=== PATIENT | female | born 1985 | race Caucasian/White ===

== ENCOUNTER 2018-07-11 22:36 | Emergency (ER) | payer BC, MEDICAID, OTHER, SELFPAY ==
--- NOTE | 2018-07-11 22:45 | EDM.PDOC ---
ED HPI GENERAL MEDICAL PROBLEM - General Chief Complaint: Respiratory Problem Stated Complaint: shortness of breath Time Seen by Provider: 07/11/18 22:45 Source of Information: Reports: Patient, Family (), Old Records ([facility] chart/EMR) History Limitations: Reports: No Limitations - History of Present Illness INITIAL COMMENTS - FREE TEXT/NARRATIVE: The patient was brought to the emergency room via private automobile by her friend for evaluation of progressive URI type symptoms, including a productive cough, wheezing, dyspnea etc. with symptoms starting about 2 weeks ago and worsening since yesterday morning. She had a fever of 100.8 earlier today with 800 mg of ibuprofen taken at 21:00 hours and Tylenol Sinus cold medication taken at 09:30 a.m. this morning. She denies any known exposure to infection with patient not yet receiving her influenza booster this season. The patient did use her inhaler earlier today, however this is . The patient denies any chest pain/pressure, heart flutter, dizziness, orthostasis, orthopnea, diaphoresis, paresthesias, recent decreased exercise tolerance, or any other anginal-type symptoms. No recent history of abdominal pain, heartburn, nausea, diarrhea, melena, gross hematochezia, or any food intolerance, including fatty foods, etc.. She does have 8/10 nonspecific chest fullness similar to previous bronchitic infections with no true pleurisy, etc. Onset: Gradual Duration: Week(s): (As above), Getting Worse Quality: Reports: Ache, Same as Previous Episode. Denies: Pressure Severity: Moderate Improves with: Reports: None Worsens with: Reports: None Context: Denies: Sick Contact, Trauma Associated Symptoms: Reports: Chest Pain (Nonspecific as above), Cough, cough w sputum (Color unknown), Fever/Chills, Nausea/Vomiting (Emesis secondary to coughing with no nausea), Shortness of Breath, Weakness (Nonspecific generalized ). 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, NSAIDS, Other Medication(s) Chest Pain Score (Numeric/FACES): 8 - Related Data Allergies Allergy/AdvReac Type Severity Reaction Status Date / Time latex Allergy Hives Verified 07/11/18 22:42 lithium [[place]] Allergy Anaphylactic Verified 07/11/18 22:42 Shock morphine Allergy Hypotension Verified 07/11/18 22:42 Sulfa (Sulfonamide Allergy Rash Verified 07/11/18 22:42 Antibiotics) tramadol HCl [From Ultram] Allergy Seizure Verified 07/11/18 22:42 Home Meds: Home Meds Gabapentin 600 mg PO TID 02/23/14 [History] Pantoprazole Sodium [Protonix] 40 mg PO DAILY 02/23/14 [History] Baclofen 10 mg PO TID PRN 07/11/18 [History] Buprenorphine HCl/Naloxone HCl [Suboxone 4 mg-1 mg Sl Film] 2 ea SL TID [History] Divalproex Sodium [Depakote ER] 250 mg PO BID 07/11/18 [History] Hydroxychloroquine Sulfate [Plaquenil] 200 mg PO DAILY 07/11/18 [History] Leflunomide [Arava] 20 mg PO DAILY 07/11/18 [History] Ondansetron [Zofran ODT] 4 mg PO Q4H PRN 07/11/18 [History] tiZANidine [Zanaflex] 4 mg PO BID PRN 07/11/18 [History] Albuterol/Ipratropium [DuoNeb 3.0-0.5 MG/3 ML] 3 ml NEB QID #60 neb 07/12/18 [Rx ] Amoxicillin/Potassium Clav [Augmentin 875-125 Tablet] 1 each PO BIDMEALS #20 tablet 07/12/18 [Rx] guaiFENesin/Dextromethorphan [Mucinex Dm ER 600-30 mg Tablet] 1 each PO BIDMEALS #20 tab.er.12h 07/12/18 [Rx] Past Medical History HEENT History: Reports: Impaired Vision, Other (See Below) Other HEENT History: Patient wears glasses Cardiovascular History: Reports: Heart Murmur, High Cholesterol, Other (See Below) Other Cardiovascular History: Benign cardiac murmur in the past with history of borderline mitral valve insufficiency. Respiratory History: Reports: Asthma, Bronchitis, Recurrent, Pneumonia, Recurrent Gastrointestinal History: Reports: Chronic Constipation, GERD, Hepatitis, Irritable Bowel Syndrome, Other (See Below) Other Gastrointestinal History: History of hepatitis C. PIPE TURNER History: Reports: Endometriosis LMP (Approximate): Other (See Below) Other PIPE TURNER History: Surgical menopause. Dysmenorrhea likely secondary to endometriosis. Musculoskeletal History: Reports: Arthritis, Back Pain, Chronic, Neck Pain, Chronic, Osteoarthritis Neurological History: Reports: Headaches, Chronic, Migraines, MS, Neuropathy, Peripheral, Other (See Below) Other Neuro History: Hydrosyringomyelia of the thoracic spine in 2007. Psychiatric History: Reports: Addiction, Anxiety, Bipolar, Depression, Other ( See Below) Other Psychiatric History: Illicit drug use as below Endocrine/Metabolic History: Reports: Hypothyroidism, Obesity/BMI 30+, Other ( See Below) Other Endocrine/Metabolic History: Hypoalbuminemia - Infectious Disease History Infectious Disease History: Reports: Hepatitis C - Past Surgical History HEENT Surgical History: Reports: Adenoidectomy, Oral Surgery, Tonsillectomy, Other (See Below) Other HEENT Surgeries/Procedures: Previous with wisdom teeth extractions with subsequent Complete teeth extraction with complete upper and lower dentures. Tonsillectomy and adenoidectomy at age 15. GI Surgical History: Reports: Appendectomy, Bariatric Procedure, Cholecystectomy , Other (See Below) Other GI Surgeries/Procedures: Gastric bypass in September 2007. Laparoscopic cholecystectomy. Appendectomy. Female Surgical History: Reports: Hysterectomy, Other (See Below) Other Female Surgeries/Procedures: Endometrial surgeries 3 secondary to endometriosis. Neurological Surgical History: Reports: Discectomy, Spinal Fusion, Other (See Below) Other Neurological Surgeries/Procedures: Back surgeries 3 including L4-L5 spinal fusion and previous discectomy. - Past Imaging History Past Imaging History: Reports: Cardiac Echo (Negative echocardiogram on 12/10/13 with ejection fraction of 6065 percent.), Carotid US (Negative on 12/10/13.), MRI (MRI of the brain on 12/04/13. MRI of the C-spine and thoracic spine on .), Ultrasound (Thyroid ultrasound on 12/13/13) Social & Family History - Family History Cardiac: Reports: Hypertension, Pacemaker, Other (See Below) Other Cardiac Family History: Father with history of hypertension and pacemaker. Psychiatric: Reports: Anxiety, Depression, Other (See Below) Other Psychiatric Family History: Mother with anxiety depression disorder - Tobacco Use Smoking Status *Q: Current Every Day Smoker Tobacco Use Within Last Twelve Months: Cigarettes Used Tobacco, but Quit: No Smoking Cessation Information Provided To Patient: Yes Second Hand Smoke Exposure: Yes Source of Second Hand Smoke Exposure: smokes Second Hand Smoke Education Provided: Yes - Recreational Drug Use Recreational Drug Use: Yes Recreational Drug Type: Reports: Amphetamines (Speed), Benzodiazepines, Cocaine , Ecstasy, Heroin, Methamphetamine, Morphine, Oxycodone - Living Situation & Occupation Living situation: Reports: ED ROS GENERAL - Review of Systems Review Of Systems: ROS reveals no pertinent complaints other than HPI. ED EXAM, GENERAL - Physical Exam Exam: See Below Exam Limited By: No Limitations General Appearance: Alert, WD/WN, No Apparent Distress, Anxious (Mild) Eye Exam: Bilateral Eye: EOMI, Normal Inspection (Patient wearing glasses. No nystagmus), PERRL Ears: Normal External Exam, Normal Canal, Hearing Grossly Normal, Normal TMs Nose: Normal Mucosa, No Blood, Clear Rhinorrhea (Mild) Throat/Mouth: Normal Lips, Normal Gums, Normal Oropharynx, Normal Voice, No Airway Compromise. No: Normal Teeth (Complete dentures uppers and lowers), Dysphagia, Inflammation, Perioral Cyanosis Head: Atraumatic, Normocephalic. No: Facial Swelling, Facial Tenderness, Sinus Tenderness Neck: Normal Inspection, Supple, Non-Tender, Full Range of Motion. No: Lymphadenopathy (L), Lymphadenopathy (R), Thyromegaly Respiratory/Chest: No Respiratory Distress, No Accessory Muscle Use, Chest Non- Tender, Rales (Occasional bilateral), Rhonchi (Moderate diffuse bilateral), Wheezing (Moderate diffuse bilateral). No: Pleural Rub, Retractions Cardiovascular: Normal Peripheral Pulses, No Edema, No Gallop, No JVD, No Murmur , No Rub, Tachycardia (Mild with regular rhythm). No: Gallop/S3, Friction Rub Peripheral Pulses: 2+: Radial (L), Radial (R) GI/Abdominal: Normal Bowel Sounds, Soft, Non-Tender, No Organomegaly, No Distention, No Abnormal Bruit, No Mass. No: Guarding (Female) Exam: Deferred Rectal (Female) Exam: Deferred Back Exam: Normal Inspection, Full Range of Motion. No: CVA Tenderness (L), CVA Tenderness (R), Muscle Spasm Extremities: Normal Inspection, Normal Range of Motion, Non-Tender, Normal Capillary Refill, No Pedal Edema Neurological: Alert, Oriented, CN II-XII Intact, Normal Cognition, Normal Gait, No Motor/Sensory Deficits Psychiatric: Anxious (Mild), Depressed Mood (Mild) Skin Exam: Warm, Dry, Intact, Normal Color, No Rash. No: Diaphoretic, Jaundice , Pallor, Wound/Incision Lymphatic: No Adenopathy Course - Vital Signs Last Recorded V/S: Last Vital Signs Temp 37.3 C 07/11/18 22:46 Pulse 116 H 07/11/18 22:46 Resp 18 07/12/18 00:00 BP 122/74 07/12/18 00:00 Pulse Ox 98 07/12/18 00:00 Vital Signs - 24 hr 07/11/18 07/11/18 07/11/18 22:46 23:30 23:45 Temperature [ 37.3 C Oral] Pulse, 116 H Peripheral [ Left Pulse Oximetry] Respiratory 22 H 19 18 Rate Blood Pressure 153/91 H 122/73 122/74 [Right Upper Arm] O2 Sat by Pulse 98 95 95 Oximetry 07/12/18 00:00 Temperature [ Oral] Pulse, Peripheral [ Left Pulse Oximetry] Respiratory 18 Rate Blood Pressure 122/74 [Right Upper Arm] O2 Sat by Pulse 98 Oximetry - Orders/Labs/Meds Orders: Active Orders 24 hr Category Date Time Status Cardiac Monitoring [RC] CONTINUOUS Care 07/11/18 22:50 Active Communication Order [RC] ROUTINE Care 07/11/18 22:50 Active Oxygen Therapy, ED [RC] CONTINUOUS Care 07/11/18 22:50 Active Peripheral IV Care [RC] . DIRECTED Care 07/11/18 22:51 Active Pulse Oximetry [RC] CONTINUOUS Care 07/11/18 22:50 Active Up With Assistance [RC] ASDIRECTED Care 07/11/18 22:50 Active Nothing Per Oral Diet [DIET] Diet 07/11/18 Breakfast Active Chest 2V [CR] Stat Exams 07/11/18 22:50 Taken CULTURE BLOOD [BC] Stat Lab 07/11/18 22:55 Received CULTURE BLOOD [BC] Stat Lab 07/11/18 23:03 Received CULTURE SPUTUM + SMEAR [] Urgent Lab 07/11/18 22:50 Ordered CULTURE STREP A CONFIRMATION [] Stat Lab 07/11/18 22:52 Results STREP SCRN A RAPID W CULT CONF [] Stat Lab 07/11/18 22:52 Results Acetaminophen [Tylenol] Med 07/11/18 22:50 Active 650 mg PO Q4H PRN Sodium Chloride 0.9% [Saline Flush] Med 07/11/18 22:50 Active 10 ml FLUSH ASDIRECTED PRN Blood Culture x2 Reflex Set [OM.PC] Stat Ot 07/11/18 22:50 Ordered Obtain Past Medical Record [OM.PC] Stat Ot 07/11/18 22:50 Active Peripheral IV Insertion Adult [OM.PC] Stat Oth 07/11/18 22:50 Ordered Resuscitation Status Routine Resus Stat 07/11/18 22:50 Ordered Medication Orders Acetaminophen (Tylenol) 650 mg PO Q4H PRN PRN Reason: Pain/Fever Sodium Chloride (Saline Flush) 10 ml FLUSH ASDIRECTED PRN PRN Reason: Keep Vein Open Labs: Laboratory Tests 07/11/18 07/11/18 07/11/18 Range/Units 23:03 23:03 23:03 WBC 12.9 H (4.0-10.2) K/uL RBC 3.73 L (3.77-5.09) M/uL Hgb 12.4 (11.7-15.5) g/dL Hct 36.9 (34.0-46.0) % MCV 98.9 H D (84.0-98.0) fL MCH 33.2 (28.2-33.3) pg MCHC 33.6 (31.7-36.0) g/dL RDW 13.6 (11.2-14.1) % Plt Count 165 D (150-350) K/uL Neut % (Auto) 72.6 (45.0-80.0) % Lymph % (Auto) 20.0 (10.0-50.0) % [place] % (Auto) 6.8 (2.0-14.0) % Eos % (Auto) 0.4 (0.0-5.0) % Baso % (Auto) 0.2 (0.0-2.0) % Neut # (Auto) 9.35 H (1.40-7.00) K/uL Lymph # (Auto) 2.57 (0.50-3.50) K/uL [place] # (Auto) 0.87 (0.00-1.00) K/uL Eos # (Auto) 0.05 (0.00-0.50) K/uL Baso # (Auto) 0.02 (0.00-0.20) K/uL Sodium 141 (136-145) mmol/L Potassium 2.9 L* (3.5-5.1) mmol/L Chloride 103 (98-107) mmol/L Carbon Dioxide 26.4 (21.0-32.0) mmol/L BUN 13 (7-18) mg/dL Creatinine 0.69 (0.51-1.17) mg/dL Est Cr Clr Drug Dosing TNP Estimated GFR (MDRD) > 60 mL/min Glucose 115 H (74-106) mg/dL Lactic Acid 2.5 H (0.4-2.0) mmol/L Calcium 7.8 L (8.5-10.1) mg/dL Magnesium 1.9 (1.8-2.4) mg/dL Total Bilirubin 0.5 (0.2-1.0) mg/dL AST 96 H (15-37) U/L ALT 63 (12-78) U/L Alkaline Phosphatase 144 H (46-116) IU/L Total Protein 6.6 (6.4-8.2) g/dL Albumin 3.4 (3.4-5.0) g/dL Blood cultures 2 collected Microbiology 07/11/18 22:50 Influenza Type A Antigen Screen - Final Nasal, Unspecified NEGATIVE INFLUENZA A VIRUS AG Influenza Type B Antigen Screen - Final NEGATIVE INFLUENZA B VIRUS AG 07/11/18 22:52 Group A Streptococcus Rapid Screen - Final Throat NEGATIVE STREP A SCREEN Meds: Medications Generic Name Dose Route Start Last Admin Trade Name Freq PRN Reason Stop Dose Admin Acetaminophen 650 mg 07/11/18 22:50 Tylenol PO Q4H PRN Pain/Fever Sodium Chloride 10 ml 07/11/18 22:50 Saline Flush FLUSH ASDIRECTED PRN Keep Vein Open Discontinued Medications Generic Name Dose Route Start Last Admin Trade Name Freq PRN Reason Stop Dose Admin Albuterol/Ipratropium 3 ml 07/11/18 22:50 07/11/18 23:09 Duoneb 3.0-0.5 Mg/3 Ml NEB 07/11/18 22:51 3 ml ONETIME ONE Administration Budesonide 0.5 mg 07/11/18 22:50 07/11/18 23:27 Pulmicort NEB 07/11/18 22:51 0.5 mg ONETIME ONE Administration Ceftriaxone Sodium 1 gm 07/12/18 00:03 07/12/18 00:16 Rocephin IM 07/12/18 00:04 1 gm ONETIME ONE Administration Lidocaine HCl 5 ml 07/12/18 00:04 07/12/18 00:16 Xylocaine-Mpf 1% INJECT 07/12/18 00:05 5 ml ONETIME ONE Administration Methylprednisolone Acetate 80 mg 07/12/18 00:05 07/12/18 00:16 Depo-Medrol IM 07/12/18 00:06 80 mg ONETIME ONE Administration Potassium Chloride 40 meq 07/12/18 00:04 07/12/18 00:15 Klor-Con M20 PO 07/12/18 00:05 40 meq ONETIME ONE Administration - Radiology Interpretation Free Text/Narrative:: Creative Services Manager shows mild sinus tachycardia in the 100s with no ectopy or arrhythmia. Chest x-ray, PA and lateral, shows moderate to severe pulmonary obstructive disease with no cardiomegaly, CHF, pulmonary infiltrates, pneumothorax, etc. Departure - Departure Time of Disposition: 00:35 Disposition: Home, Self-Care 01 Condition: Good Clinical Impression: Bronchitis, Tobacco abuse counseling, Lactic acid blood increased, Elevated LFTs, Peptic reflux disease, Mixed anxiety depressive disorder Asthma Qualifiers: Asthma severity: moderate Asthma persistence: persistent Asthma complication type: with acute exacerbation Qualified Code(s): J45.41 - Moderate persistent asthma with (acute) exacerbation Osteoarthritis Qualifiers: Osteoarthritis location: multiple joints Osteoarthritis type: primary Qualified Code(s): M15.0 - Primary generalized (osteo)arthritis - Discharge Information *PRESCRIPTION DRUG MONITORING PROGRAM REVIEWED*: Not Applicable *COPY OF PRESCRIPTION DRUG MONITORING REPORT IN PATIENT CINDY: Not Applicable Prescriptions: Albuterol/Ipratropium [DuoNeb 3.0-0.5 MG/3 ML] 3 ml NEB QID #60 neb Amoxicillin/Potassium Clav [Augmentin 875-125 Tablet] 1 each PO BIDMEALS #20 tablet guaiFENesin/Dextromethorphan [Mucinex Dm ER 600-30 mg Tablet] 1 each PO BIDMEALS #20 tab.er.12h Instructions: Steps to Quit Smoking, [id number], Acute Bronchitis, Adult, [id number], Asthma, Adult, [id number] Referrals: Dali Macdonald PA-C [Primary Care Provider] - Forms: ED Department Discharge Additional Instructions: 1. Follow-up with your regular provider as her rescheduled tomorrow afternoon for reevaluation and recommended repeat basic metabolic panel and CBC 2. Tylenol 650 mg by mouth every 4 hours and/or OTC ibuprofen 2-3 tabs by mouth every 6 hours with food as directed./needed. You may stagger these medications for 48-72 hours only, which essentially means that you are receiving a pain medication about every 2 hours. 3. Discuss at follow-up visit contraindication of concurrent use of baclofen and Zanaflex with your regular provider at follow-up 4. Hygiene precautions as discussed 5. [place] diet including encouragement of oral fluids such as sports drinks, etc. for 24-48 hours as directed. Advance to regular high potassium diet as tolerated thereafter. 6. Notify your regular provider tomorrow that she did get an IM steroid injections/Depo-Medrol today. 7. Bring these discharge instructions with you to your follow-up visit. 8. Stop all tobacco use MYRIAM as directed/per provided information and consider contacting Quit LIne, etc.. 9. Immediately after this visit verify that your cellular telephone's voicemail has been activated and is empty. Also verify that your home telephone 's answering machine is operating properly and has space to receive messages. Note that it is sometimes necessary for us to be able to contact you at a later date to discuss your medical care. - Problem List & Annotations (1) Bronchitis SNOMED Code(s): 74105442 Code(s): J40 - BRONCHITIS, NOT SPECIFIED ACUTE OR CHRONIC Status: Acute Priority: High Annotation/Comment:: Moderate bronchitis with no direct evidence of a pneumonia by chest x-ray. Triple nebulizer treatment given in the emergency room with additional IM Rocephin. Blood cultures 2 were collected. Various therapeutic options were discussed with the patient, who does not wish to be hospitalized at this time. Close follow-up by regular provider as per discharge instructions. Initiate Augmentin therapy in the a.m. (2) Asthma SNOMED Code(s): 762412431 Code(s): J45.909 - UNSPECIFIED ASTHMA, UNCOMPLICATED Status: Acute Priority: High Annotation/Comment:: Significant asthma exacerbation with significant improvement in her symptoms with treatment in the emergency room as above. Only mildly persistent bilateral wheezes and rhonchi present at discharge with significantly improved tachycardia. Patient instructed on proper use of inhalers and cautioned not to use medications. IM Depo-Medrol given in the emergency room. Emergency room Samples given for DuoNeb with additional prescription provided. Close follow-up by regular provider. Tobacco cessation strongly encouraged. Qualifiers: Asthma severity: moderate Asthma persistence: persistent Asthma complication type: with acute exacerbation Qualified Code(s): J45.41 - Moderate persistent asthma with (acute) exacerbation (3) Tobacco abuse counseling SNOMED Code(s): 332832756, 556015551, 934876819 Code(s): Z71.6 - TOBACCO ABUSE COUNSELING Status: Chronic Priority: Medium Annotation/Comment:: Tobacco cessation strongly encouraged with information provided. (4) Osteoarthritis SNOMED Code(s): 216728140 Code(s): M19.90 - UNSPECIFIED OSTEOARTHRITIS, UNSPECIFIED SITE Status: Chronic Priority: Medium Annotation/Comment:: Stable by history Qualifiers: Osteoarthritis location: multiple joints Osteoarthritis type: primary Qualified Code(s): M15.0 - Primary generalized (osteo)arthritis (5) Elevated LFTs SNOMED Code(s): 909971838, 289995085 Code(s): R94.5 - ABNORMAL RESULTS OF LIVER FUNCTION STUDIES Status: Acute Priority: Medium Onset Date: 07/11/18 Annotation/Comment:: Note previous history of hepatitis C. Continue to observe closely by regular provider. (6) Lactic acid blood increased SNOMED Code(s): 7721606 Code(s): R79.89 - OTHER SPECIFIED ABNORMAL FINDINGS OF BLOOD CHEMISTRY Status: Acute Priority: High Onset Date: 07/11/18 Annotation/Comment:: Lactic acid should be repeated at follow-up. Note patient refused hospitalization as above. (7) Mixed anxiety depressive disorder SNOMED Code(s): 926098675 Code(s): F41.8 - OTHER SPECIFIED ANXIETY DISORDERS Status: Chronic Priority: Medium Annotation/Comment:: Stable by history. Note history of illicit drug use. (8) Peptic reflux disease SNOMED Code(s): 915957155 Code(s): K21.9 - GASTRO-ESOPHAGEAL REFLUX DISEASE WITHOUT ESOPHAGITIS Status: Chronic Priority: Medium Annotation/Comment:: Stable by history. - Problem List Review Problem List Initiated/Reviewed/Updated: Yes - My Orders Last 24 Hours: My Active Orders 07/11/18 22:50 Cardiac Monitoring [RC] CONTINUOUS Communication Order [RC] ROUTINE Oxygen Therapy, ED [RC] CONTINUOUS Pulse Oximetry [RC] CONTINUOUS Up With Assistance [RC] ASDIRECTED Chest 2V [CR] Stat CULTURE SPUTUM + SMEAR [RM] Urgent Acetaminophen [Tylenol] 650 mg PO Q4H PRN Sodium Chloride 0.9% [Saline Flush] 10 ml FLUSH ASDIRECTED PRN Blood Culture x2 Reflex Set [OM.PC] Stat Obtain Past Medical Record [OM.PC] Stat Peripheral IV Insertion Adult [OM.PC] Stat Resuscitation Status Routine 07/11/18 22:51 Peripheral IV Care [RC] . DIRECTED 07/11/18 22:52 CULTURE STREP A CONFIRMATION [RM] Stat STREP SCRN A RAPID W CULT CONF [RM] Stat 07/11/18 22:55 CULTURE BLOOD [BC] Stat 07/11/18 23:03 CULTURE BLOOD [BC] Stat 07/11/18 Breakfast Nothing Per Oral Diet [DIET] - Assessment/Plan Last 24 Hours: My Active Orders 07/11/18 22:50 Cardiac Monitoring [RC] CONTINUOUS Communication Order [RC] ROUTINE Oxygen Therapy, ED [RC] CONTINUOUS Pulse Oximetry [RC] CONTINUOUS Up With Assistance [RC] ASDIRECTED Chest 2V [CR] Stat CULTURE SPUTUM + SMEAR [RM] Urgent Acetaminophen [Tylenol] 650 mg PO Q4H PRN Sodium Chloride 0.9% [Saline Flush] 10 ml FLUSH ASDIRECTED PRN Blood Culture x2 Reflex Set [OM.PC] Stat Obtain Past Medical Record [OM.PC] Stat Peripheral IV Insertion Adult [OM.PC] Stat Resuscitation Status Routine 07/11/18 22:51 Peripheral IV Care [RC] . DIRECTED 07/11/18 22:52 CULTURE STREP A CONFIRMATION [RM] Stat STREP SCRN A RAPID W CULT CONF [RM] Stat 07/11/18 22:55 CULTURE BLOOD [BC] Stat 07/11/18 23:03 CULTURE BLOOD [BC] Stat 07/11/18 Breakfast Nothing Per Oral Diet [DIET] Assessment:: As above Plan: As above. Extensive precautions were given to the patient and her friend, who are in agreement with the treatment plan. See Patient Instructions for further treatment and plan.
[2018-07-11] MEDS ORDERED: Budesonide 0.5 MG/2 ML Neb Susp NEB ONE (22:50)
[2018-07-11] MEDS ORDERED: Sodium Chloride 0.9% 10 ML Syringe FLUSH PRN (22:50)
[2018-07-11] MEDS ORDERED: Acetaminophen 325 MG Tab PO PRN (22:50)
[2018-07-11] MEDS ORDERED: Albuterol/Ipratropium 3.0-0.5 MG/3 ML Neb Soln NEB ONE (22:50)
[2018-07-11 23:30] LABS: CHLORIDE,CL 103 mmol/L (98-107); SODIUM,NA 141 mmol/L (136-145)
[2018-07-12] MEDS ORDERED: cefTRIAXone 1 GM Vial IM ONE (00:03)
[2018-07-12] MEDS ORDERED: Potassium Chloride 20 MEQ Tab.ER PO ONE (00:04)
[2018-07-12] MEDS ORDERED: methylPREDNISolone Acetate 80 MG/ML SDV IM ONE (00:05)
== END 2018-07-12 00:35 | disposition home or self-care (01) ==
LOC: LL.ED 22:36 → SUPCPDRO 22:36 → LL.ED 07-12 00:35
DX: J45.41 Moderate persistent asthma with (acute) exacerbation (principal); K21.9 Gastro-esophageal reflux disease without esophagitis; J40 Bronchitis, not specified as acute or chronic; M15.0 Primary generalized (osteo)arthritis; Z71.6 Tobacco abuse counseling; F41.8 Other specified anxiety disorders; R94.5 Abnormal results of liver function studies; R79.89 Other specified abnormal findings of blood chemistry; F17.210 Nicotine dependence, cigarettes, uncomplicated
CPT/HCPCS: 36415; 71046; 80053; 83605; 83735; 85025; 87040; 87081; 87430; 87804; 94640; 96372; 99285; A9270-GY; J0696; J1040; J7620-GY

== ENCOUNTER 2018-12-26 17:17 | Inpatient (IN) | payer SELFPAY ==
[2018-12-26] MEDS ORDERED: Pantoprazole 40 MG Vial IVPUSH ONE (17:29)
[2018-12-26] MEDS ORDERED: Lactated Ringers 1,000 ML IV ONE (17:29)
[2018-12-26] MEDS ORDERED: Ondansetron 4 MG/2 ML SDV IVPUSH ONE (17:29)
[2018-12-26] MEDS ORDERED: Famotidine 20 MG/2 ML SDV IVPUSH ONE (17:29)
--- NOTE | 2018-12-26 17:29 | EDM.PDOC ---
ED HPI GENERAL MEDICAL PROBLEM - General Chief Complaint: Abdominal Pain Stated Complaint: abdominal pain Time Seen by Provider: 12/26/18 17:17 Source of Information: Reports: Patient, Family (), Old Records ([facility] chart/EMR) History Limitations: Reports: No Limitations - History of Present Illness INITIAL COMMENTS - FREE TEXT/NARRATIVE: The patient was brought to the emergency room via private automobile by her for evaluation of progressive generalized abdominal pain and cramping, which she rates at 7/10. She did take some Pepto-Bismol about 2 hours prior to arrival with patient using excessive amounts of ibuprofen during the last 2 months secondary to chronic right foot pain. She takes about 4-5 tabs OTC ibuprofen about 3 times per day with somewhat dark stools today but no true melena, gross hematochezia, etc. She did have some loose dark stools during the last 24 hours with no known exposure to infection, food poisoning, etc. Symptoms started about 5 days ago with worsening symptoms since about 5 AM this morning. The patient denies any chest pain/pressure, heart flutter, dizziness, orthostasis, orthopnea, diaphoresis, paresthesias, recent decreased exercise tolerance, or any other anginal-type symptoms. She denies any gross hematuria, colic, or other UTI symptoms. The patient did initially state that she had a possible syncopal episode, however she actually fell to her knees secondary her above abdominal pain, The patient also denies any recent cough, wheezing, dyspnea, etc. with possible fever and chills since earlier this morning, however she did not measure her temperature. No history of recent headaches, visual changes, diplopia, change in mental status, or other change in neurological status. She has also had some nonspecific occasional nausea without true emesis, etc. She is a relatively poor historian secondary to her current abdominal discomfort. Onset: Gradual, Other (As above) Duration: Constant, Getting Worse Location: Reports: Abdomen. Denies: Head, Neck, Chest, Back, Pelvis, Upper Extremity, Left, Upper Extremity, Right, Lower Extremity, Left, Lower Extremity , Right, Generalized, Radiates to Quality: Reports: Same as Previous Episode, Other (As above) Severity: Severe Improves with: Reports: None Worsens with: Reports: None Context: Reports: Other (As above). Denies: Sick Contact, Trauma Associated Symptoms: Reports: Fever/Chills, Nausea/Vomiting (As above). 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(s) (As above) Upper Abdomen Pain Score (Numeric/FACES): 7 - Related Data Allergies Allergy/AdvReac Type Severity Reaction Status Date / Time latex Allergy Hives Verified 12/26/18 18:03 lithium [Alliance] Allergy Anaphylactic Verified 12/26/18 18:03 Shock morphine Allergy Hypotension Verified 12/26/18 18:03 Sulfa (Sulfonamide Allergy Rash Verified 12/26/18 18:03 Antibiotics) tramadol HCl [From Ultram] Allergy Seizure Verified 12/26/18 18:03 Home Meds: Home Meds Gabapentin 1,200 mg PO TID 02/23/14 [History] Baclofen 10 mg PO TID PRN 07/11/18 [History] Divalproex Sodium [Depakote ER] 250 mg PO BID 07/11/18 [History] Hydroxychloroquine Sulfate [Plaquenil] 200 mg PO BID 07/11/18 [History] Leflunomide [Arava] 20 mg PO DAILY 07/11/18 [History] tiZANidine [Zanaflex] 4 mg PO BID PRN 07/11/18 [History] Amphetamine/Dextroamphetamine [Adderall XR] 30 mg PO DAILY 12/26/18 [History] Pantoprazole Sodium [Protonix] 40 mg PO BID 12/26/18 [History] Past Medical History HEENT History: Reports: Impaired Vision, Other (See Below). Denies: Allergic Rhinitis, Cataract, Glaucoma, Hard of Hearing, Macular Degeneration, Retinal Detachment Other HEENT History: Patient wears glasses and soft contact lenses. Cardiovascular History: Reports: Heart Murmur, High Cholesterol, Other (See Below). Denies: Afib, Aneurysm, Arrhythmia, Blood Clots/VTE/DVT, CAD, Cardiomyopathy, Heart Failure, Hypertension, [place], PTCA, PVD, Syncope Other Cardiovascular History: Benign cardiac murmur in the past with history of borderline mitral valve insufficiency. Respiratory History: Reports: Asthma, Bronchitis, Recurrent, Intubation, Previous, Pneumonia, Recurrent. Denies: COPD, Intubation, Difficult, PE, Pneumothorax, Sleep Apnea, TB Gastrointestinal History: Reports: Cholelithiasis, Chronic Constipation, Gastritis, GERD, GI Bleed, Hepatitis, Irritable Bowel Syndrome, PUD, Other (See Below). Denies: Celiac Disease, Chronic Diarrhea, Colon Polyp, Fecal Incontinence, Inflammatory Bowel Disease Other Gastrointestinal History: History of hepatitis C previously treated by patient history. Chronic LFTs elevation. 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 Denies : Fibroids, , Spontaneous : 0 Para: 0 LMP (Approximate): Other (See Below) Other TURRET PUNCH OPERATOR History: Surgical menopause. Dysmenorrhea likely secondary to endometriosis. Musculoskeletal History: Reports: Arthritis, Back Pain, Chronic, Fracture, Neck Pain, Chronic, Osteoarthritis, Other (See Below). Denies: Gout, RA, SLE Other Musculoskeletal History: Bilateral wrist fractures in childhood. Severe right ankle fracture 2016 requiring surgery as below. 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 Psychiatric History: Reports: Addiction, Anxiety, Bipolar, Depression, Psych Hospitalization(s), Other (See Below) Other Psychiatric History: Illicit drug use as below; multiple previous psychiatric hospitalizations for illicit drug use, etc. Endocrine/Metabolic History: Reports: Hypothyroidism, Obesity/BMI 30+, Other ( See Below). Denies: Diabetes, Type I, Diabetes, Type II, Diabetes Mellitus, Type 3c, IDDM Other Endocrine/Metabolic History: Hypoalbuminemia Hematologic History: Reports: Anemia, Blood Transfusion(s), Iron Deficiency, Other (See Below) Other Hematologic History: Possible blood transfusions in the past secondary to gastric ulcer? Oncologic (Cancer) History: Reports: Cervix, Other (See Below) Other Oncologic History: Pre-cancerous cervical lesion requiring surgery as below - Infectious Disease History Infectious Disease History: Reports: Hepatitis C - Past Surgical History Head Surgeries/Procedures: Reports: None HEENT Surgical History: Reports: Adenoidectomy, Oral Surgery, Tonsillectomy, Other (See Below). Denies: Cataract Surgery, Eye Surgery, Laser Surgery, LASIK , Myringotomy w Tube(s), Naso-Sinus Surgery Other HEENT Surgeries/Procedures: Previous with wisdom teeth extractions with subsequent Complete teeth extraction with complete upper and lower dentures. Tonsillectomy and adenoidectomy at age 15. Cardiovascular Surgical History: Reports: None. Denies: Varicose Respiratory Surgical History: Reports: None GI Surgical History: Reports: Appendectomy, Bariatric Procedure, Cholecystectomy , Hernia, Abdominal, Other (See Below). Denies: Colon, EGD, Hernia, Inguinal, Hernia Repair/Other Other GI Surgeries/Procedures: Gastric bypass in September 2007. Laparoscopic cholecystectomy age 14? Appendectomy. Volvulus versus intussusception repair of partial bowel resection in 2016 with subsequent ventral abdominal hernia repair and additional subsequent mesh removal. Female Surgical History: Reports: Cervical Cryotherapy, Hysterectomy, Other ( See Below). Denies: Section, D&C, LEEP, Salpingo-Oophorectomy Other Female Surgeries/Procedures: Cryotherapy and subsequent partial hysterectomy at age 25 secondary to precancerous cervical lesion. Endometrial surgeries 3 secondary to endometriosis. Neurological Surgical History: Reports: Discectomy, Lumbar Spine, Spinal Fusion , Other (See Below) Other Neurological Surgeries/Procedures: Back surgeries 3 including L4-L5 spinal fusion and previous discectomy. Musculoskeletal Surgical History: Reports: ORIF, Other (See Below) Other Musculoskeletal Surgeries/Procedures:: ORIF of right ankle fracture in 2016 with bilateral corrective toe surgery of digits number 13 in 2018 - Past Imaging History Past Imaging History: Reports: Cardiac Echo (Negative echocardiogram on 12/10/13 with ejection fraction of 6065 percent.), Carotid US (Negative on 12/10/13.), MRI (MRI of the brain on 12/04/13. MRI of the C-spine and thoracic spine on .), Ultrasound (Thyroid ultrasound on 12/13/13) - History Comment History Comment: She is unable to give a complete history secondary to current illness, etc. Social & Family History - Family History Cardiac: Reports: Hypertension, Pacemaker, Other (See Below) Other Cardiac Family History: Father with history of hypertension and pacemaker. Psychiatric: Reports: Anxiety, Depression, Other (See Below) Other Psychiatric Family History: Mother with anxiety depression disorder Other Family History: She unable to give a complete family history secondary to current illness, etc. as above - Tobacco Use Smoking Status *Q: Current Every Day Smoker Tobacco Use Within Last Twelve Months: Cigarettes Years of Tobacco use: 19 Packs/Tins Daily: 1.5 Packs/Tins Daily Comment: Started smoking at age 14. Maximum use of 2 packs per day. Used Tobacco, but Quit: No Smoking Cessation Information Provided To Patient: Yes Second Hand Smoke Exposure: Yes - Recreational Drug Use Recreational Drug Use: Yes Drug Use in Last 12 Months: No Recreational Drug Type: Reports: Amphetamines (Speed), Cocaine, Ecstasy, Heroin , Methamphetamine, Morphine, Oxycodone Recreational Drug Use Frequency: Binges Recreational Drug Last Use: 2013 Recreational Drug Route: Reports: Inhaled, Intravenous - Sexual History Sexual History: Reports: Sexually Active - Living Situation & Occupation Living situation: Reports: (Second on 05/27/18), (2009) , with Family () Occupation: Employed ([employer]) ED ROS GENERAL - Review of Systems Review Of Systems: ROS reveals no pertinent complaints other than HPI. ED EXAM, GI/ABD - Physical Exam Exam: See Below Exam Limited By: Uncooperative (Secondary to current illness) General Appearance: Alert, WD/WN, Anxious (Moderate to severe), Mild Distress ( Secondary to pain) Eyes: Bilateral: Normal Appearance (No nystagmus, no glasses today), EOMI ( PERRLA, fundi normal) Ears: Normal External Exam, Normal Canal, Hearing Grossly Normal, Normal TMs Nose: Normal Inspection, Normal Mucosa, No Blood Throat/Mouth: Normal Lips, Normal Gums, Normal Oropharynx, Normal Voice, No Airway Compromise. No: Normal Teeth (Complete dentures uppers and lowers), Dysphagia, Perioral Cyanosis Head: Atraumatic, Normocephalic. No: Facial Swelling, Facial Tenderness, Sinus Tenderness Neck: Normal Inspection, Supple, Non-Tender, Full Range of Motion. No: Carotid Bruit, Lymphadenopathy (L), Lymphadenopathy (R), Thyromegaly Respiratory/Chest: No Respiratory Distress, Lungs Clear, Normal Breath Sounds, No Accessory Muscle Use, Chest Non-Tender. No: Pleural Rub, Retractions Cardiovascular: Normal Peripheral Pulses, Regular Rate, Rhythm (Occasional borderline bradycardia as below), No Edema, No Gallop, No JVD, No Murmur, No Rub. No: Gallop/S3, Gallop/S4, Friction Rub GI/Abdominal Exam: Normal Bowel Sounds, No Organomegaly, No Distention, No Abnormal Bruit, No Mass, Pelvis Stable, Tender (Moderate diffuse palpation pain ), Other (Multiple abdominal scars secondary to previous surgeries). No: Guarding, Rigid, Rebound (Female) Exam: Deferred Rectal (Female) Exam: Normal Exam, Normal Rectal Tone, Heme - Stool. No: Black Stool, Bloody Stool, Fecal Impaction, Mass, Tenderness (No Kannan space tenderness) Back Exam: Normal Inspection, Full Range of Motion. No: CVA Tenderness (L), CVA Tenderness (R), Muscle Spasm Extremities: Normal Inspection, Normal Range of Motion, Non-Tender, No Pedal Edema, Normal Capillary Refill. No: Eloisa's Sign Neurological: Alert, Oriented, CN II-XII Intact, Normal Cognition, Normal Gait, Normal Reflexes (Negative Babinski's), No Motor/Sensory Deficits Psychiatric: Anxious (Moderate to severe), Depressed Mood (Moderate with adequate eye contact). No: Tearful Skin Exam: Warm, Dry, Intact, Normal Color, No Rash, Ecchymosis (Multiple old areas on lower extremities, etc.), Tattoo(s). No: Petechiae, Wound/Incision Lymphatic: No Adenopathy Course - Vital Signs Last Recorded V/S: Last Vital Signs Temp 37.1 C 12/26/18 17:20 Pulse 55 L 12/26/18 20:20 Resp 17 12/26/18 20:20 BP 145/94 H 12/26/18 20:20 Pulse Ox 100 12/26/18 20:20 Vital Signs - 24 hr 12/26/18 12/26/18 12/26/18 17:20 17:33 18:13 Temperature [ 37.1 C Temporal] Pulse, 65 56 L 58 L Peripheral [ Right Pulse Oximetry] Respiratory 18 Rate Blood Pressure 139/75 154/103 H 146/92 H [Right Upper Arm] O2 Sat by Pulse 100 100 98 Oximetry 12/26/18 12/26/18 12/26/18 18:18 19:15 19:30 Temperature [ Temporal] Pulse, 59 L 58 L 59 L Peripheral [ Right Pulse Oximetry] Respiratory 17 17 Rate Blood Pressure 152/93 H 151/84 H 152/96 H [Right Upper Arm] O2 Sat by Pulse 100 100 Oximetry 12/26/18 20:20 Temperature [ Temporal] Pulse, 55 L Peripheral [ Right Pulse Oximetry] Respiratory 17 Rate Blood Pressure 145/94 H [Right Upper Arm] O2 Sat by Pulse 100 Oximetry - Orders/Labs/Meds Orders: Active Orders 24 hr Category Date Time Status Cardiac Monitoring [RC] . DIRECTED Care 12/26/18 17:31 Active Peripheral IV Care [RC] . DIRECTED Care 12/26/18 17:29 Active Nothing Per Oral Diet [DIET] Diet 12/26/18 Breakfast Active Abdomen Pelvis w Cont [CT] Stat Exams 12/26/18 18:19 Ordered Abdomen Series w Chest 1V [CR] Stat Exams 12/26/18 17:29 Taken CULTURE URINE [RM] Stat Lab 12/26/18 17:29 Ordered H PYLORI STOOL ANTIGEN [MREF] Urgent Lab 12/26/18 17:29 Ordered UA W/MICROSCOPIC [URIN] Stat Lab 12/26/18 17:29 Ordered Sodium Chloride 0.9% [Saline Flush] Med 12/26/18 17:29 Active 10 ml FLUSH ASDIRECTED PRN Obtain Past Medical Record [OM.PC] Urgent Oth 12/26/18 17:29 Active Peripheral IV Insertion Adult [OM.PC] Stat Oth 12/26/18 17:29 Ordered Resuscitation Status Stat Resus Stat 12/26/18 17:29 Ordered Medication Orders Sodium Chloride (Saline Flush) 10 ml FLUSH ASDIRECTED PRN PRN Reason: Keep Vein Open Last Admin: 12/26/18 20:44 Dose: 10 ml Admin: 12/26/18 18:41 Dose: 10 ml Admin: 12/26/18 17:39 Dose: 10 ml Labs: Laboratory Tests 12/26/18 12/26/18 12/26/18 Range/Units 17:29 17:29 17:29 WBC 7.3 (4.0-10.2) K/uL RBC 4.32 (3.77-5.09) M/uL Hgb 14.2 D (11.7-15.5) g/dL Hct 41.8 (34.0-46.0) % MCV 96.8 (84.0-98.0) fL MCH 32.9 (28.2-33.3) pg MCHC 34.0 (31.7-36.0) g/dL RDW 12.2 (11.2-14.1) % Plt Count 218 (150-350) K/uL Neut % (Auto) 72.6 (45.0-80.0) % Lymph % (Auto) 20.3 (10.0-50.0) % Hughes % (Auto) 6.3 (2.0-14.0) % Eos % (Auto) 0.3 (0.0-5.0) % Baso % (Auto) 0.5 (0.0-2.0) % Neut # (Auto) 5.28 (1.40-7.00) K/uL Lymph # (Auto) 1.48 (0.50-3.50) K/uL Hughes # (Auto) 0.46 (0.00-1.00) K/uL Eos # (Auto) 0.02 (0.00-0.50) K/uL Baso # (Auto) 0.04 (0.00-0.20) K/uL PT (9.5-12.0) SEC INR APTT (21.0-31.3) SEC Sodium 141 (136-145) mmol/L Potassium 3.7 (3.5-5.1) mmol/L Chloride 101 (98-107) mmol/L Carbon Dioxide 29.2 (21.0-32.0) mmol/L BUN 13 (7-18) mg/dL Creatinine 0.61 (0.51-1.17) mg/dL Est Cr Clr Drug Dosing 126.37 mL/min Estimated GFR (MDRD) > 60 mL/min Glucose 92 (74-106) mg/dL Lactic Acid (0.4-2.0) mmol/L Uric Acid 6.1 (2.6-7.2) mg/dL Calcium 9.1 (8.5-10.1) mg/dL Magnesium 1.8 (1.8-2.4) mg/dL Total Bilirubin 0.8 (0.2-1.0) mg/dL AST 25 (15-37) U/L ALT 26 (12-78) U/L Alkaline Phosphatase 120 H (46-116) IU/L Total Protein 7.1 (6.4-8.2) g/dL Albumin 3.7 (3.4-5.0) g/dL Amylase 21 L (25-115) U/L Lipase 66 L (73-393) U/L 12/26/18 12/26/18 Range/Units 17:29 18:01 WBC (4.0-10.2) K/uL RBC (3.77-5.09) M/uL Hgb (11.7-15.5) g/dL Hct (34.0-46.0) % MCV (84.0-98.0) fL MCH (28.2-33.3) pg MCHC (31.7-36.0) g/dL RDW (11.2-14.1) % Plt Count (150-350) K/uL Neut % (Auto) (45.0-80.0) % Lymph % (Auto) (10.0-50.0) % Hughes % (Auto) (2.0-14.0) % Eos % (Auto) (0.0-5.0) % Baso % (Auto) (0.0-2.0) % Neut # (Auto) (1.40-7.00) K/uL Lymph # (Auto) (0.50-3.50) K/uL Hughes # (Auto) (0.00-1.00) K/uL Eos # (Auto) (0.00-0.50) K/uL Baso # (Auto) (0.00-0.20) K/uL PT 11.0 (9.5-12.0) SEC INR 1.0 APTT 27.9 (21.0-31.3) SEC Sodium (136-145) mmol/L Potassium (3.5-5.1) mmol/L Chloride (98-107) mmol/L Carbon Dioxide (21.0-32.0) mmol/L BUN (7-18) mg/dL Creatinine (0.51-1.17) mg/dL Est Cr Clr Drug Dosing mL/min Estimated GFR (MDRD) mL/min Glucose (74-106) mg/dL Lactic Acid 2.3 H (0.4-2.0) mmol/L Uric Acid (2.6-7.2) mg/dL Calcium (8.5-10.1) mg/dL Magnesium (1.8-2.4) mg/dL Total Bilirubin (0.2-1.0) mg/dL AST (15-37) U/L ALT (12-78) U/L Alkaline Phosphatase (46-116) IU/L Total Protein (6.4-8.2) g/dL Albumin (3.4-5.0) g/dL Amylase (25-115) U/L Lipase (73-393) U/L Microbiology 12/26/18 17:15 Stool Occult Blood (MICHAEL) - Final Stool / Feces NEGATIVE OCCULT BLOOD Meds: Medications Generic Name Dose Route Start Last Admin Trade Name Freq PRN Reason Stop Dose Admin Sodium Chloride 10 ml 12/26/18 17:29 12/26/18 20:44 Saline Flush FLUSH 10 ml ASDIRECTED PRN Administration Keep Vein Open Discontinued Medications Generic Name Dose Route Start Last Admin Trade Name Freq PRN Reason Stop Dose Admin Famotidine 40 mg 12/26/18 17:29 12/26/18 17:39 Pepcid IVPUSH 12/26/18 17:30 40 mg ONETIME ONE Administration Lactated Ringer's 1,000 mls @ 999 mls/hr 12/26/18 17:29 12/26/18 17:39 Ringers, Lactated IV 12/26/18 18:29 999 mls/hr .BOLUS ONE Administration Methylprednisolone Sodium Succinate 125 mg 12/26/18 19:57 12/26/18 20:44 Solu-Medrol IVPUSH 12/26/18 19:58 125 mg ONETIME ONE Administration Metoclopramide HCl 10 mg 12/26/18 18:37 12/26/18 18:41 Reglan IVPUSH 12/26/18 18:38 10 mg ONETIME ONE Administration Ondansetron HCl 4 mg 12/26/18 17:29 12/26/18 17:39 Zofran IVPUSH 12/26/18 17:30 4 mg ONETIME ONE Administration Pantoprazole Sodium 40 mg 12/26/18 17:29 12/26/18 17:39 Protonix Iv IVPUSH 12/26/18 17:30 40 mg ONETIME ONE Administration - Radiology Interpretation Free Text/Narrative:: Proration Clerk shows normal sinus rhythm with heart rate averaging in the 60s to 70s with occasional borderline bradycardia in the high 50s. No other ectopy or arrhythmia. Acute abdominal x-rays shows evidence of moderate diffuse bowel gaseous distention with status post laparoscopic cholecystectomy, however no free air or fluid levels, ileus, or obstruction. Moderate pulmonary obstructive disease with no pulmonary infiltrates, pneumothorax, cardiomegaly, CHF, etc. Telephone consultation at 19:35 hours with the radiology department at [facility]. Preliminary verbal report of CT scan of the abdomen and pelvis with IV contrast positive for probable distal small bowel inflammation consistent with Crohn's disease. No obstruction, ileus, bowel perforation, etc. CT Results Date: 12/26/18 CT Results Time: 19:35 Departure - Departure Time of Disposition: 20:50 Disposition: Admitted As Inpatient 65 Condition: Fair Clinical Impression: Tobacco abuse counseling, Peptic reflux disease, Mixed anxiety depressive disorder, Lactic acid blood increased Abdominal pain Qualifiers: Abdominal location: generalized Qualified Code(s): R10.84 - Generalized abdominal pain Asthma Qualifiers: Asthma severity: moderate Asthma persistence: unspecified Asthma complication type: uncomplicated Qualified Code(s): J45.909 - Unspecified asthma, uncomplicated Osteoarthritis Qualifiers: Osteoarthritis location: multiple joints Osteoarthritis type: primary Qualified Code(s): M15.0 - Primary generalized (osteo)arthritis - Discharge Information *PRESCRIPTION DRUG MONITORING PROGRAM REVIEWED*: Not Applicable *COPY OF PRESCRIPTION DRUG MONITORING REPORT IN PATIENT CINDY: Not Applicable - Problem List & Annotations (1) Abdominal pain SNOMED Code(s): 16002796 Code(s): R10.9 - UNSPECIFIED ABDOMINAL PAIN Status: Acute Priority: High Current Visit: Yes Onset Date: ~12/26/18 Annotation/Comment:: Osseous CT scan for probable Crohn's disease as above. IV site metal given in the emergency room. Add additional sulfasalazine at time of admission. Patient probably will need a GI consultation and probable colonoscopy once her current infection resolves. Note high-dose IV Pepcid and IV Protonix given in the emergency room with aggressive medical management as above. IV lactated Ringer' s also initiated. Abdominal assessments with vitals. IV antibiotics as a prophylactic measure with no current leukocytosis and the fever, or evidence of peritonitis. Various therapeutic options were discussed with the patient and her , who are requesting initial care in this facility. Qualifiers: Abdominal location: generalized Qualified Code(s): R10.84 - Generalized abdominal pain (2) Peptic reflux disease SNOMED Code(s): 435976143 Code(s): K21.9 - GASTRO-ESOPHAGEAL REFLUX DISEASE WITHOUT ESOPHAGITIS Status: Chronic Priority: Medium Current Visit: Yes Annotation/Comment:: Aggressive therapy as above. Note recent excessive NSAID use. Hemoccult is negative today. (3) Asthma SNOMED Code(s): 420927890 Code(s): J45.909 - UNSPECIFIED ASTHMA, UNCOMPLICATED Status: Acute Priority: High Current Visit: Yes Annotation/Comment:: No recent fever or bronchitic type symptoms with no current medications required Qualifiers: Asthma severity: moderate Asthma persistence: unspecified Asthma complication type: uncomplicated Qualified Code(s): J45.909 - Unspecified asthma, uncomplicated (4) Lactic acid blood increased SNOMED Code(s): 5525751 Code(s): R79.89 - OTHER SPECIFIED ABNORMAL FINDINGS OF BLOOD CHEMISTRY Status: Acute Priority: High Current Visit: Yes Onset Date: 07/11/18 Annotation/Comment:: Known previous history of mild lactic acid elevation. IV lactated Ringer's given in the emergency room. Repeat lactic acid level in a couple of hours and in the a.m. with no evidence of clinical sepsis. (5) Mixed anxiety depressive disorder SNOMED Code(s): 221970652 Code(s): F41.8 - OTHER SPECIFIED ANXIETY DISORDERS Status: Chronic Priority: Medium Current Visit: Yes Annotation/Comment:: Overall poor control based on today's exam. Continue to observe closely by her regular providers. Note history of illicit drug use. (6) Osteoarthritis SNOMED Code(s): 631263860 Code(s): M19.90 - UNSPECIFIED OSTEOARTHRITIS, UNSPECIFIED SITE Status: Chronic Priority: Medium Current Visit: Yes Annotation/Comment:: Note chronic right foot pain with excessive recent NSAID use as above. Surgery apparently planned in the near future. Otherwise stable by history. Qualifiers: Osteoarthritis location: multiple joints Osteoarthritis type: primary Qualified Code(s): M15.0 - Primary generalized (osteo)arthritis (7) Tobacco abuse counseling SNOMED Code(s): 106327260, 115311077, 805789875 Code(s): Z71.6 - TOBACCO ABUSE COUNSELING Status: Chronic Priority: Medium Current Visit: Yes Annotation/Comment:: Tobacco cessation strongly encouraged with information to be provided at discharge. - Problem List Review Problem List Initiated/Reviewed/Updated: Yes - My Orders Last 24 Hours: My Active Orders 12/26/18 17:29 Peripheral IV Care [RC] . DIRECTED Abdomen Series w Chest 1V [CR] Stat CULTURE URINE [RM] Stat H PYLORI STOOL ANTIGEN [MREF] Urgent UA W/MICROSCOPIC [URIN] Stat Sodium Chloride 0.9% [Saline Flush] 10 ml FLUSH ASDIRECTED PRN Obtain Past Medical Record [OM.PC] Urgent Peripheral IV Insertion Adult [OM.PC] Stat Resuscitation Status Stat 12/26/18 17:31 Cardiac Monitoring [RC] . DIRECTED 12/26/18 18:19 Abdomen Pelvis w Cont [CT] Stat 12/26/18 Breakfast Nothing Per Oral Diet [DIET] - Assessment/Plan Admission H&P: Please use this note as an admission H&P Last 24 Hours: My Active Orders 12/26/18 17:29 Peripheral IV Care [RC] . DIRECTED Abdomen Series w Chest 1V [CR] Stat CULTURE URINE [RM] Stat H PYLORI STOOL ANTIGEN [MREF] Urgent UA W/MICROSCOPIC [URIN] Stat Sodium Chloride 0.9% [Saline Flush] 10 ml FLUSH ASDIRECTED PRN Obtain Past Medical Record [OM.PC] Urgent Peripheral IV Insertion Adult [OM.PC] Stat Resuscitation Status Stat 12/26/18 17:31 Cardiac Monitoring [RC] . DIRECTED 12/26/18 18:19 Abdomen Pelvis w Cont [CT] Stat 12/26/18 Breakfast Nothing Per Oral Diet [DIET] Assessment:: As above Plan: As above. Extensive precautions were given to the patient and her , who are in agreement with the treatment plan. The patient will require about 3-4 days of inpatient/acute care secondary to multiple health problems as above.
[2018-12-26] MEDS: Sodium Chloride 0.9% 10 ML Syringe FLUSH PRN ×4 (17:39→23:59)
[2018-12-26 18:07] LABS: CHLORIDE,CL 101 mmol/L (98-107); SODIUM,NA 141 mmol/L (136-145)
[2018-12-26] MEDS ORDERED: Metoclopramide 10 MG/2 ML SDV IVPUSH ONE (18:37)
[2018-12-26] MEDS ORDERED: methylPREDNISolone Sodium Succinate 125 MG/2 ML SDV IVPUSH ONE (19:57)
[2018-12-26] MEDS ORDERED: Temazepam 15 MG Cap PO PRN (20:00)
[2018-12-26] MEDS ORDERED: Acetaminophen 325 MG Tab PO PRN (22:24)
[2018-12-26] MEDS: HYDROmorphone 1 MG/ML Syringe IVPUSH PRN (23:03)
[2018-12-26] MEDS: cefTRIAXone 1 GM in Sodium Chloride 0.9% 100 ML IV SCH (23:25)
[2018-12-26] MEDS: metroNIDAZOLE/Normal Saline 500 MG in Premix Bag 1 BAG IV SCH (23:59)
[2018-12-27] MEDS: D5 1/2 NS w/ 20 mEq/L KCl 1,000 ML IV SCH ×3 (01:08→23:37)
[2018-12-27] MEDS: traMADol 50 MG Tab PO PRN ×3 (01:08→18:07)
[2018-12-27] MEDS: HYDROmorphone 1 MG/ML Syringe IVPUSH PRN ×4 (05:01→21:57)
[2018-12-27] MEDS: methylPREDNISolone Sodium Succinate 125 MG/2 ML SDV IVPUSH SCH ×3 (05:01→21:57)
[2018-12-27] MEDS: Pantoprazole 40 MG Vial IVPUSH SCH ×2 (05:01→17:53)
[2018-12-27] MEDS: Sodium Chloride 0.9% 10 ML Syringe FLUSH PRN ×4 (05:02→23:29)
[2018-12-27 07:45] LABS: CHLORIDE,CL 103 mmol/L (98-107); SODIUM,NA 140 mmol/L (136-145)
[2018-12-27] MEDS: sulfaSALAzine 500 MG Tab PO SCH ×3 (07:46→17:56)
[2018-12-27] MEDS: Divalproex Sodium 250 MG Tab.ER PO SCH ×2 (07:46→17:53)
[2018-12-27] MEDS: Gabapentin 400 MG Cap PO SCH ×3 (07:46→17:54)
[2018-12-27] MEDS: metroNIDAZOLE/Normal Saline 500 MG in Premix Bag 1 BAG IV SCH ×3 (07:47→22:14)
[2018-12-27] MEDS: Ondansetron 4 MG/2 ML SDV IVPUSH PRN ×3 (07:56→23:27)
[2018-12-27] MEDS: Sodium Chloride 0.9% 10 ML Syringe FLUSH SCH ×3 (07:57→19:11)
--- NOTE | 2018-12-27 10:28 | PCM.PN ---
- General Info Date of Service: 12/27/18 Admission Dx/Problem (Free Text): 1. Abdominal pain likely secondary to enterocolitis/Crohn's disease 2. Mixed anxiety- depression disorder Subjective Update: She is still a poor historian secondary to her IV pain medications, mental status, etc. Functional Status: Reports: Pain Controlled, Ambulating, Urinating. Denies: Tolerating Diet (Still nothing by mouth), New Symptoms, Incentive Spirometry Pain Score: 5 - Review of Systems General: Denies: Fever, Weakness, Fatigue, Malaise, Chills, Night Sweats, Appetite (Okay, wants breakfast) HEENT: Reports: No Symptoms. Denies: Ear Pain, Eye Pain, Headaches, Sinus Congestion, Sore Throat, Rhinitis, Visual Changes Pulmonary: Reports: No Symptoms. Denies: Shortness of Breath, Pleuritic Chest Pain, Cough, Sputum, Hemoptysis, Wheezing Cardiovascular: Reports: No Symptoms. Denies: Chest Pain, Palpitations, Dyspnea on Exertion, Orthopnea, PND, Edema, Lightheadedness Gastrointestinal: Reports: Abdominal Pain, Other (No bowel movement to this point). Denies: Constipation, Decreased Appetite, Diarrhea, Difficulty Swallowing, Flatus (Improved from admission), Hematochezia, Melena, Nausea, Vomiting Genitourinary: Reports: No Symptoms. Denies: Dysuria, Frequency, Burning, Pain , Urgency, Incontinence, Hematuria, Retention, Flank Pain Musculoskeletal: Reports: Joint Pain (Nonspecific generalized). Denies: Neck Pain, Shoulder Pain, Arm Pain, Hand Pain, Back Pain Skin: Reports: Bruising (Stable). Denies: Pallor, Diaphoresis, Rash (Despite sulfasalazine therapy) Neurological: Denies: Confusion, Dizziness, Headache, Numbness, Paresthesia, Syncope, Tingling, Weakness Psychiatric: Reports: Depression (Moderate), Anxiety (Moderate). Denies: Confusion, Agitation, Cravings, Hallucinations - Patient Data Vitals - Most Recent: Last Vital Signs Temp 37.1 C 12/27/18 08:00 Pulse 55 L 12/27/18 08:00 Resp 15 12/27/18 08:00 BP 123/84 12/27/18 08:00 Pulse Ox 97 12/27/18 08:00 Vital Signs - 24 hr 12/26/18 12/26/18 12/26/18 17:20 17:33 18:13 Temperature [ 37.1 C Temporal] Pulse, 65 56 L 58 L Peripheral [ Right Pulse Oximetry] Respiratory 18 Rate Blood Pressure 139/75 154/103 H 146/92 H [Right Upper Arm] O2 Sat by Pulse 100 100 98 Oximetry 12/26/18 12/26/18 12/26/18 18:18 19:15 19:30 Temperature [ Temporal] Pulse, 59 L 58 L 59 L Peripheral [ Right Pulse Oximetry] Respiratory 17 17 Rate Blood Pressure 152/93 H 151/84 H 152/96 H [Right Upper Arm] O2 Sat by Pulse 100 100 Oximetry 12/26/18 12/26/18 12/26/18 20:20 21:15 22:25 Temperature [ 37.0 C Temporal] Pulse, 55 L 54 L Peripheral [ Right Pulse Oximetry] Respiratory 17 17 Rate Blood Pressure 145/94 H 148/84 H [Right Upper Arm] O2 Sat by Pulse 100 100 100 Oximetry 12/27/18 12/27/18 12/27/18 00:24 04:00 08:00 Temperature [ 36.8 C 37.0 C 37.1 C Temporal] Pulse, 51 L 63 55 L Peripheral [ Right Pulse Oximetry] Respiratory 15 17 15 Rate Blood Pressure 140/76 121/74 123/84 [Right Upper Arm] O2 Sat by Pulse 99 96 97 Oximetry Weight - Most Recent: 64.773 kg I&O - Last 24 Hours: Intake & Output 12/26/18 12/27/18 12/27/18 22:59 06:59 14:59 Intake Total 756 Balance 756 Imaging Impressions - Last 24 Hours: 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 Acute abdominal x-rays shows persistent mildly increased bowel gaseous pattern including some contrast with no fluid levels, free air, ileus, obstruction, etc. Note status post laparoscopic cholecystectomy and back surgery with moderate osteoarthritic changes and mild scoliosis. Moderate pulmonary obstructive disease with no pulmonary infiltrates, cardiomegaly, CHF, etc. Lab Results Last 24 Hours: Laboratory Results - last 24 hr 12/26/18 12/26/18 12/26/18 Range/Units 17:29 17:29 17:29 WBC 7.3 (4.0-10.2) K/uL RBC 4.32 (3.77-5.09) M/uL Hgb 14.2 D (11.7-15.5) g/dL Hct 41.8 (34.0-46.0) % MCV 96.8 (84.0-98.0) fL MCH 32.9 (28.2-33.3) pg MCHC 34.0 (31.7-36.0) g/dL RDW 12.2 (11.2-14.1) % Plt Count 218 (150-350) K/uL Neut % (Auto) 72.6 (45.0-80.0) % Lymph % (Auto) 20.3 (10.0-50.0) % [place] % (Auto) 6.3 (2.0-14.0) % Eos % (Auto) 0.3 (0.0-5.0) % Baso % (Auto) 0.5 (0.0-2.0) % Neut # (Auto) 5.28 (1.40-7.00) K/uL Lymph # (Auto) 1.48 (0.50-3.50) K/uL [place] # (Auto) 0.46 (0.00-1.00) K/uL Eos # (Auto) 0.02 (0.00-0.50) K/uL Baso # (Auto) 0.04 (0.00-0.20) K/uL PT (9.5-12.0) SEC INR APTT (21.0-31.3) SEC Sodium (136-145) mmol/L Potassium (3.5-5.1) mmol/L Chloride (98-107) mmol/L Carbon Dioxide (21.0-32.0) mmol/L BUN (7-18) mg/dL Creatinine (0.51-1.17) mg/dL Est Cr Clr Drug Dosing mL/min Estimated GFR (MDRD) mL/min Glucose (74-106) mg/dL Lactic Acid (0.4-2.0) mmol/L Uric Acid (2.6-7.2) mg/dL Calcium (8.5-10.1) mg/dL Magnesium (1.8-2.4) mg/dL Total Bilirubin (0.2-1.0) mg/dL AST (15-37) U/L ALT (12-78) U/L Alkaline Phosphatase (46-116) IU/L Total Protein (6.4-8.2) g/dL Albumin (3.4-5.0) g/dL Amylase 21 L (25-115) U/L Lipase (73-393) U/L Specimen Type Urinvoid Urine Color Yellow Urine Appearance Clear Urine pH 7.0 (5.0-9.0) Ur Specific [place] 1.015 (1.005-1.030) Urine Protein Negative (NEGATIVE) mg/dL Urine Glucose (UA) Negative (NEGATIVE) mg/dL Urine Ketones Negative (NEGATIVE) mg/dL Urine Occult Blood Negative (NEGATIVE) Urine Nitrite Negative (NEGATIVE) Urine Bilirubin Negative (NEGATIVE) Urine Urobilinogen 0.2 (0.2-1.0) E.U./dL Ur Leukocyte Esterase Negative (NEGATIVE) Urine RBC Not seen /HPF Urine WBC 0-5 /HPF Ur Epithelial Cells Many H /LPF Urine Bacteria Few (NONE TO FEW) /HPF 12/26/18 12/26/18 12/26/18 Range/Units 17:29 17:29 18:01 WBC (4.0-10.2) K/uL RBC (3.77-5.09) M/uL Hgb (11.7-15.5) g/dL Hct (34.0-46.0) % MCV (84.0-98.0) fL MCH (28.2-33.3) pg MCHC (31.7-36.0) g/dL RDW (11.2-14.1) % Plt Count (150-350) K/uL Neut % (Auto) (45.0-80.0) % Lymph % (Auto) (10.0-50.0) % [place] % (Auto) (2.0-14.0) % Eos % (Auto) (0.0-5.0) % Baso % (Auto) (0.0-2.0) % Neut # (Auto) (1.40-7.00) K/uL Lymph # (Auto) (0.50-3.50) K/uL [place] # (Auto) (0.00-1.00) K/uL Eos # (Auto) (0.00-0.50) K/uL Baso # (Auto) (0.00-0.20) K/uL PT 11.0 (9.5-12.0) SEC INR 1.0 APTT 27.9 (21.0-31.3) SEC Sodium 141 (136-145) mmol/L Potassium 3.7 (3.5-5.1) mmol/L Chloride 101 (98-107) mmol/L Carbon Dioxide 29.2 (21.0-32.0) mmol/L BUN 13 (7-18) mg/dL Creatinine 0.61 (0.51-1.17) mg/dL Est Cr Clr Drug Dosing 126.37 mL/min Estimated GFR (MDRD) > 60 mL/min Glucose 92 (74-106) mg/dL Lactic Acid 2.3 H (0.4-2.0) mmol/L Uric Acid 6.1 (2.6-7.2) mg/dL Calcium 9.1 (8.5-10.1) mg/dL Magnesium 1.8 (1.8-2.4) mg/dL Total Bilirubin 0.8 (0.2-1.0) mg/dL AST 25 (15-37) U/L ALT 26 (12-78) U/L Alkaline Phosphatase 120 H (46-116) IU/L Total Protein 7.1 (6.4-8.2) g/dL Albumin 3.7 (3.4-5.0) g/dL Amylase (25-115) U/L Lipase 66 L (73-393) U/L Specimen Type Urine Color Urine Appearance Urine pH (5.0-9.0) Ur Specific [place] (1.005-1.030) Urine Protein (NEGATIVE) mg/dL Urine Glucose (UA) (NEGATIVE) mg/dL Urine Ketones (NEGATIVE) mg/dL Urine Occult Blood (NEGATIVE) Urine Nitrite (NEGATIVE) Urine Bilirubin (NEGATIVE) Urine Urobilinogen (0.2-1.0) E.U./dL Ur Leukocyte Esterase (NEGATIVE) Urine RBC /HPF Urine WBC /HPF Ur Epithelial Cells /LPF Urine Bacteria (NONE TO FEW) /HPF 12/26/18 12/27/18 12/27/18 Range/Units 22:52 07:15 07:15 WBC 4.4 (4.0-10.2) K/uL RBC 4.00 (3.77-5.09) M/uL Hgb 13.4 (11.7-15.5) g/dL Hct 39.4 (34.0-46.0) % MCV 98.5 H (84.0-98.0) fL MCH 33.5 H (28.2-33.3) pg MCHC 34.0 (31.7-36.0) g/dL RDW 12.2 (11.2-14.1) % Plt Count 206 (150-350) K/uL Neut % (Auto) 91.0 H (45.0-80.0) % Lymph % (Auto) 7.9 L (10.0-50.0) % [place] % (Auto) 0.9 L (2.0-14.0) % Eos % (Auto) 0.0 (0.0-5.0) % Baso % (Auto) 0.2 (0.0-2.0) % Neut # (Auto) 4.04 (1.40-7.00) K/uL Lymph # (Auto) 0.35 L (0.50-3.50) K/uL [place] # (Auto) 0.04 (0.00-1.00) K/uL Eos # (Auto) 0.00 (0.00-0.50) K/uL Baso # (Auto) 0.01 (0.00-0.20) K/uL PT (9.5-12.0) SEC INR APTT (21.0-31.3) SEC Sodium 140 (136-145) mmol/L Potassium 4.2 (3.5-5.1) mmol/L Chloride 103 (98-107) mmol/L Carbon Dioxide 28.7 (21.0-32.0) mmol/L BUN 16 (7-18) mg/dL Creatinine 0.53 (0.51-1.17) mg/dL Est Cr Clr Drug Dosing 145.44 mL/min Estimated GFR (MDRD) > 60 mL/min Glucose 160 H (74-106) mg/dL Lactic Acid 1.3 (0.4-2.0) mmol/L Uric Acid (2.6-7.2) mg/dL Calcium 8.2 L (8.5-10.1) mg/dL Magnesium 1.9 (1.8-2.4) mg/dL Total Bilirubin 0.8 (0.2-1.0) mg/dL AST 19 (15-37) U/L ALT 21 (12-78) U/L Alkaline Phosphatase 104 (46-116) IU/L Total Protein 6.2 L (6.4-8.2) g/dL Albumin 3.2 L (3.4-5.0) g/dL Amylase 16 L (25-115) U/L Lipase 53 L (73-393) U/L Specimen Type Urine Color Urine Appearance Urine pH (5.0-9.0) Ur Specific [place] (1.005-1.030) Urine Protein (NEGATIVE) mg/dL Urine Glucose (UA) (NEGATIVE) mg/dL Urine Ketones (NEGATIVE) mg/dL Urine Occult Blood (NEGATIVE) Urine Nitrite (NEGATIVE) Urine Bilirubin (NEGATIVE) Urine Urobilinogen (0.2-1.0) E.U./dL Ur Leukocyte Esterase (NEGATIVE) Urine RBC /HPF Urine WBC /HPF Ur Epithelial Cells /LPF Urine Bacteria (NONE TO FEW) /HPF 12/27/18 Range/Units 07:15 WBC (4.0-10.2) K/uL RBC (3.77-5.09) M/uL Hgb (11.7-15.5) g/dL Hct (34.0-46.0) % MCV (84.0-98.0) fL MCH (28.2-33.3) pg MCHC (31.7-36.0) g/dL RDW (11.2-14.1) % Plt Count (150-350) K/uL Neut % (Auto) (45.0-80.0) % Lymph % (Auto) (10.0-50.0) % [place] % (Auto) (2.0-14.0) % Eos % (Auto) (0.0-5.0) % Baso % (Auto) (0.0-2.0) % Neut # (Auto) (1.40-7.00) K/uL Lymph # (Auto) (0.50-3.50) K/uL [place] # (Auto) (0.00-1.00) K/uL Eos # (Auto) (0.00-0.50) K/uL Baso # (Auto) (0.00-0.20) K/uL PT (9.5-12.0) SEC INR APTT (21.0-31.3) SEC Sodium (136-145) mmol/L Potassium (3.5-5.1) mmol/L Chloride (98-107) mmol/L Carbon Dioxide (21.0-32.0) mmol/L BUN (7-18) mg/dL Creatinine (0.51-1.17) mg/dL Est Cr Clr Drug Dosing mL/min Estimated GFR (MDRD) mL/min Glucose (74-106) mg/dL Lactic Acid 1.4 (0.4-2.0) mmol/L Uric Acid (2.6-7.2) mg/dL Calcium (8.5-10.1) mg/dL Magnesium (1.8-2.4) mg/dL Total Bilirubin (0.2-1.0) mg/dL AST (15-37) U/L ALT (12-78) U/L Alkaline Phosphatase (46-116) IU/L Total Protein (6.4-8.2) g/dL Albumin (3.4-5.0) g/dL Amylase (25-115) U/L Lipase (73-393) U/L Specimen Type Urine Color Urine Appearance Urine pH (5.0-9.0) Ur Specific [place] (1.005-1.030) Urine Protein (NEGATIVE) mg/dL Urine Glucose (UA) (NEGATIVE) mg/dL Urine Ketones (NEGATIVE) mg/dL Urine Occult Blood (NEGATIVE) Urine Nitrite (NEGATIVE) Urine Bilirubin (NEGATIVE) Urine Urobilinogen (0.2-1.0) E.U./dL Ur Leukocyte Esterase (NEGATIVE) Urine RBC /HPF Urine WBC /HPF Ur Epithelial Cells /LPF Urine Bacteria (NONE TO FEW) /HPF Silver Results Last 24 Hours: Microbiology 12/26/18 17:15 Stool Occult Blood (SILVER) - Final Stool / Feces NEGATIVE OCCULT BLOOD Med Orders - Current: Current Medications Acetaminophen (Tylenol) 650 mg PO Q4H PRN PRN Reason: Pain Divalproex Sodium (Depakote Er) 250 mg PO BID KRISTOPHER Last Admin: 12/27/18 07:46 Dose: 250 mg Famotidine (Pepcid) 20 mg IVPUSH Q12H [facility] Gabapentin (Neurontin) 1,200 mg PO TID [facility] Last Admin: 12/27/18 07:46 Dose: 1,200 mg Hydromorphone HCl (Dilaudid) 1 mg IVPUSH Q4H PRN PRN Reason: Pain (severe 7-10) Last Admin: 12/27/18 05:01 Dose: 1 mg Potassium Chloride/Dextrose/Sod Cl (D5 1/2 Ns W/ 20 Meq/L Kcl) 1,000 mls @ 100 mls/hr IV ASDIRECTED [facility] Last Admin: 12/27/18 01:08 Dose: 100 mls/hr Ceftriaxone Sodium 1 gm/ (Sodium Chloride) 100 mls @ 200 mls/hr IV Q12H [facility] Last Admin: 12/26/18 23:25 Dose: 200 mls/hr Metronidazole 500 mg/ Premix 100 mls @ 100 mls/hr IV Q8H [facility] Last Admin: 12/27/18 07:47 Dose: 100 mls/hr Lactobacillus Rhamnosus (Culturelle) 2 cap PO TID [facility] Methylprednisolone Sodium Succinate (Solu-Medrol) 125 mg IVPUSH Q8H [facility] Last Admin: 12/27/18 05:01 Dose: 125 mg Non-Formulary Medication (Amphetamine/Dextroamphetamine [Adderall Xr]) 30 mg PO DAILY [facility] Ondansetron HCl (Zofran) 4 mg IVPUSH Q6H PRN PRN Reason: Nausea/Vomiting Last Admin: 12/27/18 07:56 Dose: 4 mg Pantoprazole Sodium (Protonix Iv) 40 mg IVPUSH Q12H [facility] Last Admin: 12/27/18 05:01 Dose: 40 mg Sodium Chloride (Saline Flush) 10 ml FLUSH ASDIRECTED PRN PRN Reason: Keep Vein Open Last Admin: 12/27/18 05:02 Dose: 10 ml Sodium Chloride (Saline Flush) 10 ml FLUSH Q12HR [facility] Last Admin: 12/27/18 07:57 Dose: 10 ml Sulfasalazine (Sulfasalazine) 500 mg PO TID [facility] Last Admin: 12/27/18 07:46 Dose: 500 mg Temazepam (Restoril) 15 mg PO DAILY@2000 PRN PRN Reason: Insomnia Tramadol HCl (Ultram) 50 mg PO Q6H PRN PRN Reason: Pain (moderate 4-6) Last Admin: 12/27/18 07:56 Dose: 50 mg Discontinued Medications Famotidine (Pepcid) 40 mg IVPUSH ONETIME ONE Stop: 12/26/18 17:30 Last Admin: 12/26/18 17:39 Dose: 40 mg Lactated Ringer's (Ringers, Lactated) 1,000 mls @ 999 mls/hr IV .BOLUS ONE Stop: 12/26/18 18:29 Last Admin: 12/26/18 17:39 Dose: 999 mls/hr Ceftriaxone Sodium 1 gm/ (Sodium Chloride) 100 mls @ 200 mls/hr IV Q12H [facility]STOP[facility] Metronidazole 500 mg/ Premix 100 mls @ 100 mls/hr IV Q8H [facility] Methylprednisolone Sodium Succinate (Solu-Medrol) 125 mg IVPUSH ONETIME ONE Stop: 12/26/18 19:58 Last Admin: 12/26/18 20:44 Dose: 125 mg Metoclopramide HCl (Reglan) 10 mg IVPUSH ONETIME ONE Stop: 12/26/18 18:38 Last Admin: 12/26/18 18:41 Dose: 10 mg Ondansetron HCl (Zofran) 4 mg IVPUSH ONETIME ONE Stop: 12/26/18 17:30 Last Admin: 12/26/18 17:39 Dose: 4 mg Pantoprazole Sodium (Protonix Iv) 40 mg IVPUSH ONETIME ONE Stop: 12/26/18 17:30 Last Admin: 12/26/18 17:39 Dose: 40 mg - Exam Quality Assessment: DVT Prophylaxis. No: Supplemental Oxygen, Central Line/PICC , Urine Catheter, Skin Breakdown, Restraints General: Alert, Oriented, Cooperative, No Acute Distress, Sedated (Occasional with IV pain medicines) HEENT: Pupils Equal, Pupils Reactive, EOMI, Mucous Membr. Moist/[place] Neck: Supple, Trachea Midline, No JVD, No Thyromegaly, +2 Carotid Pulse wo Bruit. No: Lymphadenopathy Lungs: Clear to Auscultation, Normal Respiratory Effort. No: Rhonchi, Rub Cardiovascular: Regular Rhythm, No Murmurs, Bradycardia (Occasional, regular rhythm). No: Murmurs, Gallops, Rubs GI/Abdominal Exam: Normal Bowel Sounds, No Organomegaly, No Distention, No Abnormal Bruit, No Mass, Tender (Improved mild nonspecific diffuse palpation pain). No: Guarding, Rigid, Rebound (Female) Exam: Deferred Back Exam: Full Range of Motion, Other (Scoliosismild). No: CVA Tenderness (L) , CVA Tenderness (R), Muscle Spasm, Paraspinal Tenderness Extremities: Normal Inspection, Normal Range of Motion, Non-Tender, No Pedal Edema, Normal Capillary Refill, Other (Stable old ecchymosis on the legs and forearms) Peripheral Pulses: 2+: Radial (L), Radial (R), Dorsalis Pedis (L), Dorsalis Pedis (R) Skin: Warm, Dry, Intact, Ecchymosis (As above). No: Rash Neurological: No New Focal Deficit, Other (Negative Babinski's) Psy/Mental Status: Labile Mood, Anxious (Moderate), Depressed (Moderate), Agitated (Occasional). No: Hallucinations, Withdrawal Symptoms - Problem List & Annotations (1) Abdominal pain SNOMED Code(s): 99860231 Code(s): R10.9 - UNSPECIFIED ABDOMINAL PAIN Status: Acute Priority: High Current Visit: Yes Onset Date: ~12/26/18 Qualifiers: Abdominal location: generalized Qualified Code(s): R10.84 - Generalized abdominal pain Annotation/Comment:: Positive CT scan for probable Crohn's disease on admission as per emergency room note. High-dose IV Solu-Medrol initiated in the emergency room with continuation for now and improvement of her abdominal complaints. Additional sulfasalazine at time of admission, which has been tolerated well with no evidence of rash, etc. despite her previous sulfur allergy. Patient probably will need a GI and rheumatology consultation consultation shortly after discharge with consideration of initiation/change of patient's current medical regimen to Humira. She has apparently been scheduled for an EGD in the near future with recommendation of concomitant EGD and colonoscopy once her current symptoms improve. She was once again strongly advised not to excessively use NSAIDs, etc. especially in light of her previous gastric bypass. She has been noncompliant with her vitamin supplementations despite her gastric bypass as above. TIBC panel, vitamin B-12 level, etc. to be conducted in the a.m. Note high-dose IV Pepcid and IV Protonix was initiated in the emergency room with aggressive medical management as above. IV lactated Ringer' s also initiated in the emergency room. IV Rocephin and IV Flagyl were also initiated as GI prophylaxis with initiation of additional probiotic today. Continue Abdominal assessments with vitals. No current leukocytosis, fever, or evidence of peritonitis. Various therapeutic options were discussed in the emergency room with the patient and her , who are requesting initial care in this facility. (2) Peptic reflux disease SNOMED Code(s): 193546131 Code(s): K21.9 - GASTRO-ESOPHAGEAL REFLUX DISEASE WITHOUT ESOPHAGITIS Status: Chronic Priority: Medium Current Visit: Yes Annotation/Comment:: Aggressive therapy as above. Note recent excessive NSAID use. Hemoccult is negative today. (3) Asthma SNOMED Code(s): 903434158 Code(s): J45.909 - UNSPECIFIED ASTHMA, UNCOMPLICATED Status: Acute Priority: High Current Visit: Yes Qualifiers: Asthma severity: moderate Asthma persistence: unspecified Asthma complication type: uncomplicated Qualified Code(s): J45.909 - Unspecified asthma, uncomplicated Annotation/Comment:: No recent fever or bronchitic type symptoms with no current medications required (4) Lactic acid blood increased SNOMED Code(s): 9554014 Code(s): R79.89 - OTHER SPECIFIED ABNORMAL FINDINGS OF BLOOD CHEMISTRY Status: Acute Priority: High Current Visit: Yes Onset Date: 07/11/18 Annotation/Comment:: Repeat lactic acid levels 2 have been negative no clinical evidence of sepsis, including on admission. Known previous history of mild lactic acid elevation. IV lactated Ringer's given in the emergency room. (5) Mixed anxiety depressive disorder SNOMED Code(s): 266319944 Code(s): F41.8 - OTHER SPECIFIED ANXIETY DISORDERS Status: Chronic Priority: Medium Current Visit: Yes Annotation/Comment:: Overall poor control based exams during this hospitalization. Note previous history of illicit drug use with patient requesting IV Dilaudid when she is woken up for vitals, assessments, etc. Otherwise she is sleeping frequently with no pain or discomfort at that time. Attempt to decrease vitals, etc.. IV Dilaudid and oral Ultram are to be used with discretion with no narcotic medications recommended at discharge. Continue to observe closely by her regular providers at discharge. (6) Osteoarthritis SNOMED Code(s): 930300448 Code(s): M19.90 - UNSPECIFIED OSTEOARTHRITIS, UNSPECIFIED SITE Status: Chronic Priority: Medium Current Visit: Yes Qualifiers: Osteoarthritis location: multiple joints Osteoarthritis type: primary Qualified Code(s): M15.0 - Primary generalized (osteo)arthritis Annotation/Comment:: Rheumatology follow-up shortly after discharge secondary to change of her medications as above. Note chronic right foot pain with excessive recent NSAID use as above. Surgery apparently planned in the near future. Otherwise stable by history. Note history of rheumatoid arthritis with current/previous immunosuppressive therapy as per emergency room note. (7) Tobacco abuse counseling SNOMED Code(s): 307409708, 527281399, 142140027 Code(s): Z71.6 - TOBACCO ABUSE COUNSELING Status: Chronic Priority: Medium Current Visit: Yes Annotation/Comment:: Tobacco cessation strongly encouraged with information to be provided at discharge. (8) Rheumatoid arthritis SNOMED Code(s): 69240024 Code(s): M06.9 - RHEUMATOID ARTHRITIS, UNSPECIFIED Status: Chronic Priority: Medium Current Visit: Yes Qualifiers: Rheumatoid arthritis location: multiple sites Rheumatoid factor presence: unspecified presence Qualified Code(s): M06.9 - Rheumatoid arthritis, unspecified Annotation/Comment:: As above (9) Hypoalbuminemia SNOMED Code(s): 359852497 Code(s): E88.09 - [facility] DISORDERS OF PLASMA-PROTEIN METABOLISM, NEC Status: Acute Priority: Medium Current Visit: Yes Onset Date: 12/27/18 Annotation/Comment:: Observe for now. Normal on admission. (10) Hyperglycemia SNOMED Code(s): 11046470 Code(s): R73.9 - HYPERGLYCEMIA, UNSPECIFIED Status: Acute Priority: Medium Current Visit: Yes Onset Date: 12/27/18 Annotation/Comment:: Mild fasting hyperglycemia this morning secondary to high-dose IV Solu-Medrol therapy. Observe for now. - Problem List Review Problem List Initiated/Reviewed/Updated: Yes - My Orders Last 24 Hours: My Active Orders 12/26/18 17:29 Peripheral IV Care [RC] . DIRECTED Abdomen Series w Chest 1V [CR] Stat CULTURE URINE [RM] Stat H PYLORI STOOL ANTIGEN [MREF] Urgent Sodium Chloride 0.9% [Saline Flush] 10 ml FLUSH ASDIRECTED PRN Peripheral IV Insertion Adult [OM.PC] Stat Resuscitation Status Stat 12/26/18 17:31 Cardiac Monitoring [RC] Q2HR 12/26/18 18:19 Abdomen Pelvis w Cont [CT] Stat 12/26/18 20:00 Temazepam [Restoril] 15 mg PO DAILY@1999 PRN 12/26/18 22:24 Acetaminophen [Tylenol] 650 mg PO Q4H PRN Ondansetron [Zofran] 4 mg IVPUSH Q6H PRN 12/26/18 22:25 Communication Order [RC] ROUTINE Communication Order [RC] ROUTINE Communication, Vaccine [RC] PER UNIT ROUTINE Height and Weight [RC] DAILY Intake and Output Strict [RC] 06,18 Oxygen Therapy [RC] PRN Pulse Oximetry [RC] ASDIRECTED Up With Assistance [RC] ASDIRECTED Vaccines to be Administered [RC] PER UNIT ROUTINE OCCULT BLOOD DIAGNOSTIC [OP] Routine GM Immunization Reflex [OM.PC] Click To Edit 12/26/18 22:30 D5 1/2 NS w/ 20 mEq/L KCl 1,000 ml IV ASDIRECTED HYDROmorphone [Dilaudid] 1 mg IVPUSH Q4H PRN traMADol [Ultram] 50 mg PO Q6H PRN 12/26/18 23:00 cefTRIAXone [Rocephin] 1 gm Sodium Chloride 0.9% [Normal Saline] 100 ml IV Q12H metroNIDAZOLE/Normal Saline [Flagyl 500 MG in NS 100 ML] 500 mg Premix Bag 1 bag IV Q8H 12/27/18 05:11 Abdomen Series w Chest 1V [CR] Routine 12/27/18 06:00 Pantoprazole [ProTONIX IV] 40 mg IVPUSH Q12H methylPREDNISolone Sod Succ [Solu-MEDROL] 125 mg IVPUSH Q8H 12/27/18 08:00 Amphetamine/Dextroamphetamine [Adderall XR] 30 mg PO DAILY Divalproex Sodium [Depakote ER] 250 mg PO BID Gabapentin [Neurontin] 1,200 mg PO TID Sodium Chloride 0.9% [Saline Flush] 10 ml FLUSH Q12HR sulfaSALAzine 500 mg PO TID 12/27/18 10:16 Communication Order [RC] ROUTINE Vital Signs [RC] Q8HR 12/27/18 12:00 Lactobacillus Rhamnosus GG [Culturelle] 2 cap PO TID 12/27/18 18:00 Famotidine [Pepcid] 20 mg IVPUSH Q12H 12/27/18 Breakfast Clear Liquid Diet [DIET] 12/28/18 05:11 CBC WITH AUTO DIFF [HEME] Routine COMPREHENSIVE METABOLIC PN,CMP [CHEM] Routine CRP [C-REACTIVE PROTEIN] [CHEM] Routine FOLIC ACID [CHEM] Routine IRON/TIBC [CHEM] Routine VITAMIN B12 [CHEM] Routine - Assessment Assessment:: As above - Plan Plan:: As above. Extensive precautions were given to the patient, who is in agreement with the treatment plan. She will require an additional 2-3 days of acute/ inpatient care secondary to multiple health issues as above.
[2018-12-27] MEDS: cefTRIAXone 1 GM in Sodium Chloride 0.9% 100 ML IV SCH ×2 (11:51→22:07)
[2018-12-27] MEDS: Lactobacillus Rhamnosus GG (Probiotic) Cap PO SCH ×2 (11:52→17:55)
[2018-12-27] MEDS: AMPHETAMINE PO SCH (13:38)
[2018-12-27] MEDS: DEXTROAMPHETAMINE PO SCH (13:38)
[2018-12-27] MEDS: Famotidine 20 MG/2 ML SDV IVPUSH SCH (17:55)
[2018-12-27] MEDS ORDERED: Ketorolac 30 MG/ML SDV IVPUSH ONE (18:16)
[2018-12-27] MEDS: LORazepam 1 MG Tab PO SCH (19:10)
[2018-12-27] MEDS ORDERED: cefTRIAXone 1 GM in Sodium Chloride 0.9% 100 ML IV SCH (23:00)
[2018-12-27] MEDS ORDERED: metroNIDAZOLE/Normal Saline 500 MG in Premix Bag 1 BAG IV SCH (23:00)
[2018-12-28] MEDS ORDERED: Ketorolac 15 MG/ML SDV IVPUSH PRN
[2018-12-28] MEDS: HYDROmorphone 1 MG/ML Syringe IVPUSH PRN (03:11)
[2018-12-28] MEDS: Sodium Chloride 0.9% 10 ML Syringe FLUSH PRN (05:59)
[2018-12-28] MEDS: Famotidine 20 MG/2 ML SDV IVPUSH SCH (05:59)
[2018-12-28] MEDS: Pantoprazole 40 MG Vial IVPUSH SCH (05:59)
[2018-12-28] MEDS: methylPREDNISolone Sodium Succinate 125 MG/2 ML SDV IVPUSH SCH (05:59)
[2018-12-28] MEDS: Ondansetron 4 MG/2 ML SDV IVPUSH PRN (07:30)
[2018-12-28] MEDS: Gabapentin 400 MG Cap PO SCH (07:32)
[2018-12-28] MEDS: Divalproex Sodium 250 MG Tab.ER PO SCH (07:32)
[2018-12-28] MEDS: sulfaSALAzine 500 MG Tab PO SCH (07:33)
[2018-12-28] MEDS: Lactobacillus Rhamnosus GG (Probiotic) Cap PO SCH (07:33)
[2018-12-28] MEDS: LORazepam 1 MG Tab PO SCH (07:33)
[2018-12-28] MEDS: DEXTROAMPHETAMINE PO SCH (07:34)
[2018-12-28] MEDS: AMPHETAMINE PO SCH (07:34)
[2018-12-28] MEDS: metroNIDAZOLE/Normal Saline 500 MG in Premix Bag 1 BAG IV SCH (07:36)
[2018-12-28] MEDS: Sodium Chloride 0.9% 10 ML Syringe FLUSH SCH ×2 (07:37→10:15)
[2018-12-28 07:41] LABS: SODIUM,NA 143 mmol/L (136-145)
[2018-12-28 08:46] LABS: CHLORIDE,CL 106 mmol/L (98-107)
[2018-12-28] MEDS ORDERED: Loperamide 2 MG Tab PO ONE (09:21)
[2018-12-28] MEDS: cefTRIAXone 1 GM in Sodium Chloride 0.9% 100 ML IV SCH (10:13)
--- NOTE | 2018-12-28 10:37 | PCM.DCSUM1 ---
Discharge Summary - Hospital Course HPI Initial Comments: See emergency room note/admission H&P Brief History: See emergency room note/admission H&P Diagnosis: Stroke: No Modified [place] Scale: No Symptoms at All Modified [place] Scale Score: 0 - Discharge Data Discharge Date: 12/28/18 Discharge Disposition: Home, Self-Care 01 Condition: Good - Discharge Diagnosis/Problem(s) (1) Abdominal pain SNOMED Code(s): 63043236 ICD Code: R10.9 - UNSPECIFIED ABDOMINAL PAIN Status: Acute Priority: High Current Visit: Yes Onset Date: ~12/26/18 Problem Details: Patient is requesting to be transferred to [facility] in [place]. Telephone consultation at 09:[address] Villaseñor, hospitalist at [facility] in [place], who did agree to accept the patient, however only under the understanding that they did not have a web production manager on staff for hospital consultation and that GI would likely continue our current medical therapy with no further EGD, colonoscopy, etc. in the near future. Various therapeutic options were discussed with the patient, who did consult with her by telephone. After much deliberation the patient does wish to go home with close follow-up by her regular provider as per discharge instructions. Note Positive CT scan for probable Crohn's disease on admission as per emergency room note. High-dose IV Solu-Medrol was initiated in the emergency room with continuation during this entire hospitalization with improved abdominal complaints, however note significant pain control required including IV dialogue did, oral Ultram, and IV Toradol. Her arthritis is under moderate control despite above aggressive therapy. Close follow-up by GI and hematology on an outpatient basis. Additional sulfasalazine during this hospitalization, which has been tolerated well with no evidence of rash, etc. despite her previous sulfur allergy. Consider initiation/change of patient's current medical regimen to Humira and/or equivalent with her previous Plaquenil and Arava discontinued secondary to possible complication of colitis with Arava. She had apparently been scheduled for an EGD prior to admission with recommendation of concomitant EGD and colonoscopy in the next 46 weeks once her current symptoms improve. She was once again strongly advised not to excessively use NSAIDs, etc. especially in light of her previous gastric bypass. She has been noncompliant with her vitamin supplementations despite her gastric bypass as above. TIBC panel and vitamin B-12 levels were normal today with decreased folic acid level and vitamin supplements to be reinitiated at discharge etc. Note high- dose IV Pepcid and IV Protonix was initiated in the emergency room and continued during this hospitalization with aggressive medical management as above. She will be discharged on her previous high-dose OTC Protonix secondary to her oral prednisone therapy. IV lactated Ringer's also initiated in the emergency room and continued during this hospitalization. IV Rocephin and IV Flagyl were also initiated as GI prophylaxis with additional probiotic today. Rocephin will be changed to Cipro secondary to some mild diarrhea with Imodium given at discharge. Abdominal assessments with vitals were stable with no evidence of an acute abdomen. No current leukocytosis, fever, or evidence of peritonitis. Various therapeutic options were discussed in the emergency room with the patient and her , who requested initial care in this facility. Qualifiers: Abdominal location: generalized Qualified Code(s): R10.84 - Generalized abdominal pain (2) Peptic reflux disease SNOMED Code(s): 265946905 ICD Code: K21.9 - GASTRO-ESOPHAGEAL REFLUX DISEASE WITHOUT ESOPHAGITIS Status: Chronic Priority: Medium Current Visit: Yes Problem Details: Aggressive therapy as above. Note recent excessive NSAID use. Hemoccults negative during this hospitalization. (3) Asthma SNOMED Code(s): 710708100 ICD Code: J45.909 - UNSPECIFIED ASTHMA, UNCOMPLICATED Status: Acute Priority: Medium Current Visit: Yes Problem Details: No recent fever or bronchitic type symptoms with no current medications required Qualifiers: Asthma severity: moderate Asthma persistence: unspecified Asthma complication type: uncomplicated Qualified Code(s): J45.909 - Unspecified asthma, uncomplicated (4) Lactic acid blood increased SNOMED Code(s): 3348504 ICD Code: R79.89 - OTHER SPECIFIED ABNORMAL FINDINGS OF BLOOD CHEMISTRY Status: Acute Priority: High Current Visit: Yes Onset Date: 07/11/18 Problem Details: Repeat lactic acid levels 2 have been negative no clinical evidence of sepsis, including on admission. Known previous history of mild lactic acid elevation. IV lactated Ringer's given in the emergency room. (5) Mixed anxiety depressive disorder SNOMED Code(s): 084892971 ICD Code: F41.8 - OTHER SPECIFIED ANXIETY DISORDERS Status: Chronic Priority: High Current Visit: Yes Problem Details: Overall poor control based exams during this hospitalization. Note previous history of illicit drug use with patient requesting IV Dilaudid when she is woken up for vitals, assessments, etc. Otherwise she is sleeping frequently with no pain or discomfort at that time. Attempted to decrease vitals, etc.. IV Dilaudid and oral Ultram are to be used with discretion with no narcotic medications recommended at discharge. Continue to observe closely by her regular providers at discharge. Emotional support provided. (6) Osteoarthritis SNOMED Code(s): 330793686 ICD Code: M19.90 - UNSPECIFIED OSTEOARTHRITIS, UNSPECIFIED SITE Status: Chronic Priority: Medium Current Visit: Yes Problem Details: Rheumatology follow-up shortly after discharge secondary to change of her medications as above. Note chronic right foot pain with excessive recent NSAID use as above. Surgery apparently planned in the near future. Otherwise stable by history. Note history of rheumatoid arthritis with current/previous immunosuppressive therapy as per emergency room note. Qualifiers: Osteoarthritis location: multiple joints Osteoarthritis type: primary Qualified Code(s): M15.0 - Primary generalized (osteo)arthritis (7) Tobacco abuse counseling SNOMED Code(s): 487082553, 953817870, 252711912 ICD Code: Z71.6 - TOBACCO ABUSE COUNSELING Status: Chronic Priority: Medium Current Visit: Yes Problem Details: Tobacco cessation strongly encouraged with information to be provided at discharge. (8) Rheumatoid arthritis SNOMED Code(s): 35356054 ICD Code: M06.9 - RHEUMATOID ARTHRITIS, UNSPECIFIED Status: Chronic Priority: Medium Current Visit: Yes Problem Details: As above Qualifiers: Rheumatoid arthritis location: multiple sites Rheumatoid factor presence: unspecified presence Qualified Code(s): M06.9 - Rheumatoid arthritis, unspecified (9) Hypoalbuminemia SNOMED Code(s): 615846657 ICD Code: E88.09 - [facility] DISORDERS OF PLASMA-PROTEIN METABOLISM, NEC Status: Acute Priority: Medium Current Visit: Yes Onset Date: 12/27/18 Problem Details: Observe for now. Normal on admission. (10) Hyperglycemia SNOMED Code(s): 49114907 ICD Code: R73.9 - HYPERGLYCEMIA, UNSPECIFIED Status: Acute Priority: Medium Current Visit: Yes Onset Date: 12/27/18 Problem Details: Mild fasting hyperglycemia secondary to high-dose IV Solu-Medrol therapy. Observe for now. - Patient Summary/Data Operative Procedure(s) Performed: None Complications: None Consults: Hospitalist at [facility] as above. Labs Pending at D/C: None Recommended Follow-up Testing/Procedures: As per discharge instructions Planned Operative Procedure(s) after DC: As above and as per discharge instructions Hospital Course: She was admitted to inpatient/acute care on telemetry with close observation of her abdominal status. Aggressive medical management as above. Patient is requesting to go home with patient initially wanting to be transferred to [facility] as above. Close follow-up by rheumatology and GI on an outpatient basis. - Patient Instructions Diet: Heart Healthy Diet Activity: As Tolerated Driving: May Drive Today Showering/Bathing: May Shower Notify Provider of: Fever, Increased Pain, Nausea and/or Vomiting Other/Special Instructions: 1. Followup with your regular provider in 5-7 days as directed for reevaluation and recommended CBC, comprehensive metabolic panel and acute abdominal x-rays. Bring these discharge instructions with you to that visit. 2. Follow-up with your web production manager at [facility] as discussed with further adjustment of medications likely at that time. 3. Discuss follow-up with GI at [facility] at time of your follow-up visit with your regular provider with recommendation of EGD and colonoscopy in the next 46 weeks. 4. Immediately after this visit verify that your cellular telephone's voicemail has been activated and is empty. Also verify that your home telephone's answering machine is operating properly and has space to receive messages. Note that it is sometimes necessary for us to be able to contact you at a later date to discuss your medical care. 5. Please remember that we are ALWAYS here for you and want to answer any questions you may have. Feel free to call the hospital any time and we call you back [facility]. 6. Tylenol 650 mg by mouth every 4 hours and/or OTC ibuprofen 2-3 tabs by mouth every 6 hours with food as directed./needed. You may stagger these medications for 48- 72 hours only, which essentially means that you are receiving a pain medication about every 2 hours. Use ibuprofen with discretion as discussed. 7. NEVER EXCEED THE RECOMMENDED DOSE OF MEDICINES, INCLUDING OTC MEDICINES, ETC. 6. Stop all tobacco use [place] as directed/per provided information and consider contacting [employer]uit [employer]ne, etc.. - Discharge Plan *PRESCRIPTION DRUG MONITORING PROGRAM REVIEWED*: Not Applicable *COPY OF PRESCRIPTION DRUG MONITORING REPORT IN PATIENT CINDY: Not Applicable Prescriptions/Med Rec: Ciprofloxacin HCl [Cipro] 500 mg PO BID #14 tablet Cyanocobalamin/Folic AC/Vit B6 [Folic Acid-Vit B6-Vit B12] 1 each PO DAILY #30 tablet Folic Acid/Multivit-Minerals [Adult Multivitamin Gummies] 2 ea PO DAILY #100 tab.chew Lactobacillus Rhamnosus GG [Culturelle] 2 cap PO TID #60 cap metroNIDAZOLE [Flagyl] 500 mg PO Q8H #21 tab predniSONE [Prednisone] 20 mg PO BIDMEALS #10 tablet sulfaSALAzine 500 mg PO TID #30 tablet Home Medications: Home Meds Gabapentin 1,200 mg PO TID 02/23/14 [History] Baclofen 10 mg PO TID PRN 07/11/18 [History] Divalproex Sodium [Depakote ER] 250 mg PO BID 07/11/18 [History] Amphetamine/Dextroamphetamine [Adderall XR] 30 mg PO DAILY 12/26/18 [History] Pantoprazole Sodium [Protonix] 40 mg PO BID 12/26/18 [History] Acetaminophen [Tylenol] 650 mg PO Q4H PRN tablet 12/28/18 [Rx] Ciprofloxacin HCl [Cipro] 500 mg PO BID #14 tablet 12/28/18 [Rx] Cyanocobalamin/Folic AC/Vit B6 [Folic Acid-Vit B6-Vit B12] 1 each PO DAILY #30 tablet 12/28/18 [Rx] Folic Acid/Multivit-Minerals [Adult Multivitamin Gummies] 2 ea PO DAILY #100 tab.chew 12/28/18 [Rx] Lactobacillus Rhamnosus GG [Culturelle] 2 cap PO TID #60 cap 12/28/18 [Rx] metroNIDAZOLE [Flagyl] 500 mg PO Q8H #21 tab 12/28/18 [Rx] predniSONE [Prednisone] 20 mg PO BIDMEALS #10 tablet 12/28/18 [Rx] sulfaSALAzine 500 mg PO TID #30 tablet 12/28/18 [Rx] Oxygen Therapy Mode: Room Air Patient Handouts: Metoclopramide injection, Lactobacillus Oral formulations, Ondansetron injection, Sulfasalazine tablets, Pantoprazole injection, Methylprednisolone Solution for Injection, Famotidine injection Forms: ED Department Discharge Referrals: Dali Macdonald PA-C [Primary Care Provider] - - Discharge Summary/Plan Comment DC Time >30 min.: Yes (Coordination of care ) Discharge Summary/Plan Comment: As above. Extensive precautions were given to the patient, who is in agreement with the treatment plan. See Patient Instructions for further treatment and plan. - General Info Date of Service: 12/28/18 Admission Dx/Problem (Free Text: 1. Abdominal pain likely secondary to enterocolitis/Crohn's disease 2. Mixed anxiety- depression disorder Functional Status: Reports: Pain Controlled, Tolerating Diet, Ambulating, Urinating. Denies: New Symptoms, Incentive Spirometry Numeric/FACES Score: 5 (Arthralgias with improved abdominal pain) - Review of Systems General: Reports: No Symptoms. Denies: Fever (Fever resolved this morning with low-grade fever yesterday), Weakness, Fatigue, Malaise, Chills, Night Sweats, Appetite HEENT: Reports: Glasses. Denies: Contact Lenses, Dysphasia, Ear Pain, Eye Pain , Headaches, Sinus Congestion, Sore Throat, Rhinitis, Visual Changes Pulmonary: Reports: No Symptoms. Denies: Shortness of Breath, Pleuritic Chest Pain, Cough, Sputum, Hemoptysis, Wheezing Cardiovascular: Reports: No Symptoms. Denies: Chest Pain, Palpitations, Dyspnea on Exertion, Orthopnea, Edema, Lightheadedness Gastrointestinal: Reports: Abdominal Pain (Improved), Diarrhea (With some stool incontinence). Denies: Constipation, Decreased Appetite, Difficulty Swallowing , Flatus, Hematochezia, Melena, Nausea, Vomiting Genitourinary: Reports: No Symptoms. Denies: Dysuria, Frequency, Burning, Pain , Urgency, Incontinence, Hematuria, Retention, Flank Pain Musculoskeletal: Reports: Joint Pain (Generalized arthralgias). Denies: Joint Swelling Skin: Reports: No Symptoms. Denies: Jaundice, Diaphoresis, Bruising, Pruritis, Rash Neurological: Denies: Confusion, Dizziness, Headache, Numbness, Paresthesia, Tingling, Weakness, Change in Speech Psychiatric: Reports: Depression, Anxiety, Agitation. Denies: Confusion, Cravings, Hallucinations, Suicidal Ideation, Homicidal Ideation - Patient Data Vitals - Most Recent: Last Vital Signs Temp 36.8 C 12/28/18 08:00 Pulse 72 12/28/18 08:00 Resp 16 12/28/18 08:00 BP 138/87 12/28/18 08:00 Pulse Ox 97 12/28/18 08:00 Vital Signs - 24 hr 12/27/18 12/28/18 17:15 08:00 Temperature [ 37.7 C 36.8 C Temporal] Pulse, 67 72 Peripheral [ Right Pulse Oximetry] Respiratory 16 16 Rate Blood Pressure 137/83 138/87 [Right Upper Arm] O2 Sat by Pulse 95 97 Oximetry Weight - Most Recent: 68.492 kg (4 kg weight gain since admission) I&O - Last 24 hours: Intake & Output 12/27/18 12/28/18 12/28/18 22:59 06:59 14:59 Intake Total 0860 297 1279 Balance 7720 270 1310 Imaging Impressions - Last 24 hrs: assessment counselor showed normal sinus rhythm in the high 50s to 70s with no ectopy or arrhythmia Telephone consultation at 19:35 hours on 12/26/18 with the radiology department at [facility] in [place]. Preliminary verbal report of CT scan of the abdomen and pelvis with IV contrast positive for probable distal small bowel inflammation consistent with Crohn's disease. No obstruction, ileus, bowel perforation, etc. CT Results report from 12/26/18 is in agreement with the above findings. Last Acute abdominal x-rays and 12/27/18 shows persistent mildly increased bowel gaseous pattern including some contrast with no fluid levels, free air, ileus, obstruction, etc. Note status post laparoscopic cholecystectomy and back surgery with moderate osteoarthritic changes and mild scoliosis. Moderate pulmonary obstructive disease with no pulmonary infiltrates, cardiomegaly, CHF, etc. Lab Results - Last 24 hrs: Laboratory Results - last 24 hr 12/28/18 12/28/18 12/28/18 Range/Units 06:55 06:55 06:55 WBC 7.1 (4.0-10.2) K/uL RBC 3.77 (3.77-5.09) M/uL Hgb 12.4 (11.7-15.5) g/dL Hct 37.9 (34.0-46.0) % MCV 100.5 H (84.0-98.0) fL MCH 32.9 (28.2-33.3) pg MCHC 32.7 (31.7-36.0) g/dL RDW 12.0 (11.2-14.1) % Plt Count 213 (150-350) K/uL Neut % (Auto) 88.5 H (45.0-80.0) % Lymph % (Auto) 7.7 L (10.0-50.0) % [place] % (Auto) 3.8 (2.0-14.0) % Eos % (Auto) 0.0 (0.0-5.0) % Baso % (Auto) 0.0 (0.0-2.0) % Neut # (Auto) 6.30 (1.40-7.00) K/uL Lymph # (Auto) 0.55 (0.50-3.50) K/uL [place] # (Auto) 0.27 (0.00-1.00) K/uL Eos # (Auto) 0.00 (0.00-0.50) K/uL Baso # (Auto) 0.00 (0.00-0.20) K/uL Sodium 143 (136-145) mmol/L Potassium 3.9 (3.5-5.1) mmol/L Chloride 106 (98-107) mmol/L Carbon Dioxide 27.0 (21.0-32.0) mmol/L BUN 21 H (7-18) mg/dL Creatinine 0.53 (0.51-1.17) mg/dL Est Cr Clr Drug Dosing 145.06 mL/min Estimated GFR (MDRD) > 60 mL/min Glucose 111 H (74-106) mg/dL Calcium 8.1 L (8.5-10.1) mg/dL Iron 91 (50-175) ug/dL TIBC 291 (250-450) ug/dL % Saturation 31.03097 Total Bilirubin 0.4 (0.2-1.0) mg/dL AST 13 L (15-37) U/L ALT 18 (12-78) U/L Alkaline Phosphatase 85 (46-116) IU/L C-Reactive Protein < 0.2 (<=0.9) mg/dL Total Protein 5.8 L (6.4-8.2) g/dL Albumin 2.9 L (3.4-5.0) g/dL Vitamin B12 1479 H (193-986) pg/mL Folate 5.0 L (8.6-58.9) ng/mL Laboratory Tests 12/26/18 12/26/18 12/26/18 Range/Units 17:29 17:29 17:29 WBC 7.3 (4.0-10.2) K/uL RBC 4.32 (3.77-5.09) M/uL Hgb 14.2 D (11.7-15.5) g/dL Hct 41.8 (34.0-46.0) % MCV 96.8 (84.0-98.0) fL MCH 32.9 (28.2-33.3) pg MCHC 34.0 (31.7-36.0) g/dL RDW 12.2 (11.2-14.1) % Plt Count 218 (150-350) K/uL Neut % (Auto) 72.6 (45.0-80.0) % Lymph % (Auto) 20.3 (10.0-50.0) % [place] % (Auto) 6.3 (2.0-14.0) % Eos % (Auto) 0.3 (0.0-5.0) % Baso % (Auto) 0.5 (0.0-2.0) % Neut # (Auto) 5.28 (1.40-7.00) K/uL Lymph # (Auto) 1.48 (0.50-3.50) K/uL [place] # (Auto) 0.46 (0.00-1.00) K/uL Eos # (Auto) 0.02 (0.00-0.50) K/uL Baso # (Auto) 0.04 (0.00-0.20) K/uL PT (9.5-12.0) SEC INR APTT (21.0-31.3) SEC Sodium (136-145) mmol/L Potassium (3.5-5.1) mmol/L Chloride (98-107) mmol/L Carbon Dioxide (21.0-32.0) mmol/L BUN (7-18) mg/dL Creatinine (0.51-1.17) mg/dL Est Cr Clr Drug Dosing mL/min Estimated GFR (MDRD) mL/min Glucose (74-106) mg/dL Lactic Acid (0.4-2.0) mmol/L Uric Acid (2.6-7.2) mg/dL Calcium (8.5-10.1) mg/dL Magnesium (1.8-2.4) mg/dL Iron (50-175) ug/dL TIBC (250-450) ug/dL % Saturation Total Bilirubin (0.2-1.0) mg/dL AST (15-37) U/L ALT (12-78) U/L Alkaline Phosphatase (46-116) IU/L C-Reactive Protein (<=0.9) mg/dL Total Protein (6.4-8.2) g/dL Albumin (3.4-5.0) g/dL Amylase 21 L (25-115) U/L Lipase (73-393) U/L Vitamin B12 (193-986) pg/mL Folate (8.6-58.9) ng/mL Specimen Type Urinvoid Urine Color Yellow Urine Appearance Clear Urine pH 7.0 (5.0-9.0) Ur Specific [place] 1.015 (1.005-1.030) Urine Protein Negative (NEGATIVE) mg/dL Urine Glucose (UA) Negative (NEGATIVE) mg/dL Urine Ketones Negative (NEGATIVE) mg/dL Urine Occult Blood Negative (NEGATIVE) Urine Nitrite Negative (NEGATIVE) Urine Bilirubin Negative (NEGATIVE) Urine Urobilinogen 0.2 (0.2-1.0) E.U./dL Ur Leukocyte Esterase Negative (NEGATIVE) Urine RBC Not seen /HPF Urine WBC 0-5 /HPF Ur Epithelial Cells Many H /LPF Urine Bacteria Few (NONE TO FEW) /HPF 12/26/18 12/26/18 12/26/18 Range/Units 17:29 17:29 18:01 WBC (4.0-10.2) K/uL RBC (3.77-5.09) M/uL Hgb (11.7-15.5) g/dL Hct (34.0-46.0) % MCV (84.0-98.0) fL MCH (28.2-33.3) pg MCHC (31.7-36.0) g/dL RDW (11.2-14.1) % Plt Count (150-350) K/uL Neut % (Auto) (45.0-80.0) % Lymph % (Auto) (10.0-50.0) % [place] % (Auto) (2.0-14.0) % Eos % (Auto) (0.0-5.0) % Baso % (Auto) (0.0-2.0) % Neut # (Auto) (1.40-7.00) K/uL Lymph # (Auto) (0.50-3.50) K/uL [place] # (Auto) (0.00-1.00) K/uL Eos # (Auto) (0.00-0.50) K/uL Baso # (Auto) (0.00-0.20) K/uL PT 11.0 (9.5-12.0) SEC INR 1.0 APTT 27.9 (21.0-31.3) SEC Sodium 141 (136-145) mmol/L Potassium 3.7 (3.5-5.1) mmol/L Chloride 101 (98-107) mmol/L Carbon Dioxide 29.2 (21.0-32.0) mmol/L BUN 13 (7-18) mg/dL Creatinine 0.61 (0.51-1.17) mg/dL Est Cr Clr Drug Dosing 126.37 mL/min Estimated GFR (MDRD) > 60 mL/min Glucose 92 (74-106) mg/dL Lactic Acid 2.3 H (0.4-2.0) mmol/L Uric Acid 6.1 (2.6-7.2) mg/dL Calcium 9.1 (8.5-10.1) mg/dL Magnesium 1.8 (1.8-2.4) mg/dL Iron (50-175) ug/dL TIBC (250-450) ug/dL % Saturation Total Bilirubin 0.8 (0.2-1.0) mg/dL AST 25 (15-37) U/L ALT 26 (12-78) U/L Alkaline Phosphatase 120 H (46-116) IU/L C-Reactive Protein (<=0.9) mg/dL Total Protein 7.1 (6.4-8.2) g/dL Albumin 3.7 (3.4-5.0) g/dL Amylase (25-115) U/L Lipase 66 L (73-393) U/L Vitamin B12 (193-986) pg/mL Folate (8.6-58.9) ng/mL Specimen Type Urine Color Urine Appearance Urine pH (5.0-9.0) Ur Specific [place] (1.005-1.030) Urine Protein (NEGATIVE) mg/dL Urine Glucose (UA) (NEGATIVE) mg/dL Urine Ketones (NEGATIVE) mg/dL Urine Occult Blood (NEGATIVE) Urine Nitrite (NEGATIVE) Urine Bilirubin (NEGATIVE) Urine Urobilinogen (0.2-1.0) E.U./dL Ur Leukocyte Esterase (NEGATIVE) Urine RBC /HPF Urine WBC /HPF Ur Epithelial Cells /LPF Urine Bacteria (NONE TO FEW) /HPF 12/26/18 12/27/18 12/27/18 Range/Units 22:52 07:15 07:15 WBC 4.4 (4.0-10.2) K/uL RBC 4.00 (3.77-5.09) M/uL Hgb 13.4 (11.7-15.5) g/dL Hct 39.4 (34.0-46.0) % MCV 98.5 H (84.0-98.0) fL MCH 33.5 H (28.2-33.3) pg MCHC 34.0 (31.7-36.0) g/dL RDW 12.2 (11.2-14.1) % Plt Count 206 (150-350) K/uL Neut % (Auto) 91.0 H (45.0-80.0) % Lymph % (Auto) 7.9 L (10.0-50.0) % [place] % (Auto) 0.9 L (2.0-14.0) % Eos % (Auto) 0.0 (0.0-5.0) % Baso % (Auto) 0.2 (0.0-2.0) % Neut # (Auto) 4.04 (1.40-7.00) K/uL Lymph # (Auto) 0.35 L (0.50-3.50) K/uL [place] # (Auto) 0.04 (0.00-1.00) K/uL Eos # (Auto) 0.00 (0.00-0.50) K/uL Baso # (Auto) 0.01 (0.00-0.20) K/uL PT (9.5-12.0) SEC INR APTT (21.0-31.3) SEC Sodium 140 (136-145) mmol/L Potassium 4.2 (3.5-5.1) mmol/L Chloride 103 (98-107) mmol/L Carbon Dioxide 28.7 (21.0-32.0) mmol/L BUN 16 (7-18) mg/dL Creatinine 0.53 (0.51-1.17) mg/dL Est Cr Clr Drug Dosing 145.44 mL/min Estimated GFR (MDRD) > 60 mL/min Glucose 160 H (74-106) mg/dL Lactic Acid 1.3 (0.4-2.0) mmol/L Uric Acid (2.6-7.2) mg/dL Calcium 8.2 L (8.5-10.1) mg/dL Magnesium 1.9 (1.8-2.4) mg/dL Iron (50-175) ug/dL TIBC (250-450) ug/dL % Saturation Total Bilirubin 0.8 (0.2-1.0) mg/dL AST 19 (15-37) U/L ALT 21 (12-78) U/L Alkaline Phosphatase 104 (46-116) IU/L C-Reactive Protein (<=0.9) mg/dL Total Protein 6.2 L (6.4-8.2) g/dL Albumin 3.2 L (3.4-5.0) g/dL Amylase 16 L (25-115) U/L Lipase 53 L (73-393) U/L Vitamin B12 (193-986) pg/mL Folate (8.6-58.9) ng/mL Specimen Type Urine Color Urine Appearance Urine pH (5.0-9.0) Ur Specific [place] (1.005-1.030) Urine Protein (NEGATIVE) mg/dL Urine Glucose (UA) (NEGATIVE) mg/dL Urine Ketones (NEGATIVE) mg/dL Urine Occult Blood (NEGATIVE) Urine Nitrite (NEGATIVE) Urine Bilirubin (NEGATIVE) Urine Urobilinogen (0.2-1.0) E.U./dL Ur Leukocyte Esterase (NEGATIVE) Urine RBC /HPF Urine WBC /HPF Ur Epithelial Cells /LPF Urine Bacteria (NONE TO FEW) /HPF 12/27/18 12/28/18 12/28/18 Range/Units 07:15 06:55 06:55 WBC 7.1 (4.0-10.2) K/uL RBC 3.77 (3.77-5.09) M/uL Hgb 12.4 (11.7-15.5) g/dL Hct 37.9 (34.0-46.0) % MCV 100.5 H (84.0-98.0) fL MCH 32.9 (28.2-33.3) pg MCHC 32.7 (31.7-36.0) g/dL RDW 12.0 (11.2-14.1) % Plt Count 213 (150-350) K/uL Neut % (Auto) 88.5 H (45.0-80.0) % Lymph % (Auto) 7.7 L (10.0-50.0) % [place] % (Auto) 3.8 (2.0-14.0) % Eos % (Auto) 0.0 (0.0-5.0) % Baso % (Auto) 0.0 (0.0-2.0) % Neut # (Auto) 6.30 (1.40-7.00) K/uL Lymph # (Auto) 0.55 (0.50-3.50) K/uL [place] # (Auto) 0.27 (0.00-1.00) K/uL Eos # (Auto) 0.00 (0.00-0.50) K/uL Baso # (Auto) 0.00 (0.00-0.20) K/uL PT (9.5-12.0) SEC INR APTT (21.0-31.3) SEC Sodium 143 (136-145) mmol/L Potassium 3.9 (3.5-5.1) mmol/L Chloride 106 (98-107) mmol/L Carbon Dioxide 27.0 (21.0-32.0) mmol/L BUN 21 H (7-18) mg/dL Creatinine 0.53 (0.51-1.17) mg/dL Est Cr Clr Drug Dosing 145.06 mL/min Estimated GFR (MDRD) > 60 mL/min Glucose 111 H (74-106) mg/dL Lactic Acid 1.4 (0.4-2.0) mmol/L Uric Acid (2.6-7.2) mg/dL Calcium 8.1 L (8.5-10.1) mg/dL Magnesium (1.8-2.4) mg/dL Iron (50-175) ug/dL TIBC (250-450) ug/dL % Saturation Total Bilirubin 0.4 (0.2-1.0) mg/dL AST 13 L (15-37) U/L ALT 18 (12-78) U/L Alkaline Phosphatase 85 (46-116) IU/L C-Reactive Protein < 0.2 (<=0.9) mg/dL Total Protein 5.8 L (6.4-8.2) g/dL Albumin 2.9 L (3.4-5.0) g/dL Amylase (25-115) U/L Lipase (73-393) U/L Vitamin B12 1479 H (193-986) pg/mL Folate 5.0 L (8.6-58.9) ng/mL Specimen Type Urine Color Urine Appearance Urine pH (5.0-9.0) Ur Specific [place] (1.005-1.030) Urine Protein (NEGATIVE) mg/dL Urine Glucose (UA) (NEGATIVE) mg/dL Urine Ketones (NEGATIVE) mg/dL Urine Occult Blood (NEGATIVE) Urine Nitrite (NEGATIVE) Urine Bilirubin (NEGATIVE) Urine Urobilinogen (0.2-1.0) E.U./dL Ur Leukocyte Esterase (NEGATIVE) Urine RBC /HPF Urine WBC /HPF Ur Epithelial Cells /LPF Urine Bacteria (NONE TO FEW) /HPF 12/28/18 Range/Units 06:55 WBC (4.0-10.2) K/uL RBC (3.77-5.09) M/uL Hgb (11.7-15.5) g/dL Hct (34.0-46.0) % MCV (84.0-98.0) fL MCH (28.2-33.3) pg MCHC (31.7-36.0) g/dL RDW (11.2-14.1) % Plt Count (150-350) K/uL Neut % (Auto) (45.0-80.0) % Lymph % (Auto) (10.0-50.0) % [place] % (Auto) (2.0-14.0) % Eos % (Auto) (0.0-5.0) % Baso % (Auto) (0.0-2.0) % Neut # (Auto) (1.40-7.00) K/uL Lymph # (Auto) (0.50-3.50) K/uL [place] # (Auto) (0.00-1.00) K/uL Eos # (Auto) (0.00-0.50) K/uL Baso # (Auto) (0.00-0.20) K/uL PT (9.5-12.0) SEC INR APTT (21.0-31.3) SEC Sodium (136-145) mmol/L Potassium (3.5-5.1) mmol/L Chloride (98-107) mmol/L Carbon Dioxide (21.0-32.0) mmol/L BUN (7-18) mg/dL Creatinine (0.51-1.17) mg/dL Est Cr Clr Drug Dosing mL/min Estimated GFR (MDRD) mL/min Glucose (74-106) mg/dL Lactic Acid (0.4-2.0) mmol/L Uric Acid (2.6-7.2) mg/dL Calcium (8.5-10.1) mg/dL Magnesium (1.8-2.4) mg/dL Iron 91 (50-175) ug/dL TIBC 291 (250-450) ug/dL % Saturation [id number] Total Bilirubin (0.2-1.0) mg/dL AST (15-37) U/L ALT (12-78) U/L Alkaline Phosphatase (46-116) IU/L C-Reactive Protein (<=0.9) mg/dL Total Protein (6.4-8.2) g/dL Albumin (3.4-5.0) g/dL Amylase (25-115) U/L Lipase (73-393) U/L Vitamin B12 (193-986) pg/mL Folate (8.6-58.9) ng/mL Specimen Type Urine Color Urine Appearance Urine pH (5.0-9.0) Ur Specific [place] (1.005-1.030) Urine Protein (NEGATIVE) mg/dL Urine Glucose (UA) (NEGATIVE) mg/dL Urine Ketones (NEGATIVE) mg/dL Urine Occult Blood (NEGATIVE) Urine Nitrite (NEGATIVE) Urine Bilirubin (NEGATIVE) Urine Urobilinogen (0.2-1.0) E.U./dL Ur Leukocyte Esterase (NEGATIVE) Urine RBC /HPF Urine WBC /HPF Ur Epithelial Cells /LPF Urine Bacteria (NONE TO FEW) /HPF MICHAEL Results - Last 24 hrs: Microbiology 12/26/18 17:29 Urine Culture - Final Urine, Clean Catch MIXED ILYA SUGGESTIVE OF CONTAMINATION. 12/26/18 22:25 Stool Occult Blood (MICHAEL) - Final Stool / Feces NEGATIVE OCCULT BLOOD Med Orders - Current: Current Medications Acetaminophen (Tylenol) 650 mg PO Q4H PRN PRN Reason: Pain Divalproex Sodium (Depakote Er) 250 mg PO BID [facility] Last Admin: 12/28/18 07:32 Dose: 250 mg Famotidine (Pepcid) 20 mg IVPUSH Q12H [facility] Last Admin: 12/28/18 05:59 Dose: 20 mg Gabapentin (Neurontin) 1,200 mg PO TID [facility] Last Admin: 12/28/18 07:32 Dose: 1,200 mg Potassium Chloride/Dextrose/Sod Cl (D5 1/2 Ns W/ 20 Meq/L Kcl) 1,000 mls @ 100 mls/hr IV ASDIRECTED [facility] Last Admin: 12/27/18 23:37 Dose: 100 mls/hr Ceftriaxone Sodium 1 gm/ (Sodium Chloride) 100 mls @ 200 mls/hr IV Q12H [facility] Last Admin: 12/28/18 10:13 Dose: 200 mls/hr Metronidazole 500 mg/ Premix 100 mls @ 100 mls/hr IV Q8H [facility] Last Admin: 12/28/18 07:36 Dose: 100 mls/hr Ketorolac Tromethamine (Toradol) 15 mg IVPUSH Q6H PRN PRN Reason: Pain (severe 7-10) Stop: 12/29/18 18:00 Last Admin: 12/28/18 07:31 Dose: 15 mg Lactobacillus Rhamnosus (Culturelle) 2 cap PO TID [facility] Last Admin: 12/28/18 07:33 Dose: 2 cap Lorazepam (Ativan) 1 mg PO TID [facility] Last Admin: 12/28/18 07:33 Dose: 1 mg Methylprednisolone Sodium Succinate (Solu-Medrol) 125 mg IVPUSH Q8H [facility] Last Admin: 12/28/18 05:59 Dose: 125 mg Amphetamine/Dextroamphetamine [ Adderall Xr] 30 Mg Caps 30 mg PO DAILY [facility] Last Admin: 12/28/18 07:34 Dose: 30 mg Ondansetron HCl (Zofran) 4 mg IVPUSH Q6H PRN PRN Reason: Nausea/Vomiting Last Admin: 12/28/18 07:30 Dose: 4 mg Pantoprazole Sodium (Protonix Iv) 40 mg IVPUSH Q12H [facility] Last Admin: 12/28/18 05:59 Dose: 40 mg Sodium Chloride (Saline Flush) 10 ml FLUSH ASDIRECTED PRN PRN Reason: Keep Vein Open Last Admin: 12/28/18 05:59 Dose: 10 ml Sodium Chloride (Saline Flush) 10 ml FLUSH Q12HR [facility] Last Admin: 12/28/18 10:15 Dose: 10 ml Sulfasalazine (Sulfasalazine) 500 mg PO TID [facility] Last Admin: 12/28/18 07:33 Dose: 500 mg Tramadol HCl (Ultram) 50 mg PO Q6H PRN PRN Reason: Pain (moderate 4-6) Last Admin: 12/27/18 18:07 Dose: 50 mg Discontinued Medications Famotidine (Pepcid) 40 mg IVPUSH ONETIME ONE Stop: 12/26/18 17:30 Last Admin: 12/26/18 17:39 Dose: 40 mg Hydromorphone HCl (Dilaudid) 1 mg IVPUSH Q4H PRN PRN Reason: Pain (severe 7-10) Last Admin: 12/28/18 03:11 Dose: 1 mg Lactated Ringer's (Ringers, Lactated) 1,000 mls @ 999 mls/hr IV .BOLUS ONE Stop: 12/26/18 18:29 Last Admin: 12/26/18 17:39 Dose: 999 mls/hr Ceftriaxone Sodium 1 gm/ (Sodium Chloride) 100 mls @ 200 mls/hr IV Q12H [facility] Metronidazole 500 mg/ Premix 100 mls @ 100 mls/hr IV Q8H [facility] Ketorolac Tromethamine (Toradol) 30 mg IVPUSH ONETIME ONE Stop: 12/27/18 18:17 Last Admin: 12/27/18 19:09 Dose: 30 mg Loperamide HCl (Imodium Ad) 4 mg PO ONETIME ONE Stop: 12/28/18 09:22 Last Admin: 12/28/18 10:14 Dose: 4 mg Methylprednisolone Sodium Succinate (Solu-Medrol) 125 mg IVPUSH ONETIME ONE Stop: 12/26/18 19:58 Last Admin: 12/26/18 20:44 Dose: 125 mg Metoclopramide HCl (Reglan) 10 mg IVPUSH ONETIME ONE Stop: 12/26/18 18:38 Last Admin: 12/26/18 18:41 Dose: 10 mg Ondansetron HCl (Zofran) 4 mg IVPUSH ONETIME ONE Stop: 12/26/18 17:30 Last Admin: 12/26/18 17:39 Dose: 4 mg Pantoprazole Sodium (Protonix Iv) 40 mg IVPUSH ONETIME ONE Stop: 12/26/18 17:30 Last Admin: 12/26/18 17:39 Dose: 40 mg Temazepam (Restoril) 15 mg PO DAILY@2000 PRN PRN Reason: Insomnia - Exam Quality Assessment: Reports: DVT Prophylaxis. Denies: Supplemental Oxygen, Central Line/PICC, Urine Catheter, Skin Breakdown General: Reports: Alert, Oriented. Denies: Lethargic HEENT: Reports: Pupils Equal, Pupils Reactive, EOMI, Mucous Membr. Moist/[place], Other (Glasses) Neck: Reports: Supple, Trachea Midline, No JVD, No Thyromegaly, +2 Carotid Pulse wo Bruit. Denies: Carotid Bruit, Thyromegaly Lungs: Reports: Clear to Auscultation, Normal Respiratory Effort. Denies: Rub, Wheezing Cardiovascular: Reports: Regular Rate, Regular Rhythm, No Murmurs. Denies: Gallops, Rubs GI/Abdominal Exam: Normal Bowel Sounds, No Organomegaly, No Distention, No Abnormal Bruit, No Mass, Tender (Improved mild diffuse nonspecific palpation pain). No: Non-Tender, Guarding, Rigid, Rebound (Female) Exam: Deferred Rectal (Female) Exam: Deferred Back Exam: Reports: Normal Inspection, Full Range of Motion. Denies: CVA Tenderness (L), CVA Tenderness (R), Muscle Spasm Extremities: Normal Inspection, Normal Range of Motion, Non-Tender, No Pedal Edema, Normal Capillary Refill. No: Joint Swelling, Eloisa's Sign Skin: Reports: Warm, Dry, Intact. Denies: Rash, Ecchymosis Neurological: Reports: No New Focal Deficit Psy/Mental Status: Reports: Alert, Labile Mood, Anxious (Moderate to severe), Depressed (Moderate), Agitated. Denies: Suicidal Ideation, Homicidal Ideation, Hallucinations, Withdrawal Symptoms
[2018-12-28] MEDS: traMADol 50 MG Tab PO PRN (11:04)
== END 2018-12-28 12:10 | disposition home or self-care (01) | DRG 386 ==
LOC: LL.ED 17:17 → LL.MS 20:50
PROVIDERS: ADMIT Family Medicine; ATTEND Family Medicine
DX: K50.90 Crohn's disease, unspecified, without complications (principal); K52.1 Toxic gastroenteritis and colitis; T45.1X5A Adverse effect of antineoplastic and immunosuppressive drugs, initial encounter; F90.9 Attention-deficit hyperactivity disorder, unspecified type; M06.9 Rheumatoid arthritis, unspecified; M25.571 Pain in right ankle and joints of right foot; G89.29 Other chronic pain; H54.7 Unspecified visual loss; E78.00 Pure hypercholesterolemia, unspecified; K21.9 Gastro-esophageal reflux disease without esophagitis; K59.09 Other constipation; M19.91 Primary osteoarthritis, unspecified site; M54.9 Dorsalgia, unspecified; G62.9 Polyneuropathy, unspecified; G43.909 Migraine, unspecified, not intractable, without status migrainosus; G35 Multiple sclerosis; K27.9 Peptic ulcer, site unspecified, unspecified as acute or chronic, without hemorrhage or perforation; E03.9 Hypothyroidism, unspecified; E66.9 Obesity, unspecified; F17.210 Nicotine dependence, cigarettes, uncomplicated; J45.40 Moderate persistent asthma, uncomplicated; F41.8 Other specified anxiety disorders; R73.9 Hyperglycemia, unspecified; Z79.899 Other long term (current) drug therapy; Z86.19 Personal history of other infectious and parasitic diseases; Z68.30 Body mass index [BMI] 30.0-30.9, adult; Z90.49 Acquired absence of other specified parts of digestive tract; Z98.1 Arthrodesis status; Z88.2 Allergy status to sulfonamides; Z88.8 Allergy status to other drugs, medicaments and biological substances; Z88.6 Allergy status to analgesic agent; Z91.040 Latex allergy status; Z71.6 Tobacco abuse counseling
CPT/HCPCS: 36415; 74022; 74177; 80053; 81001; 82150; 82272; 82607; 82746; 83540; 83550; 83605; 83690; 83735; 84550; 85025; 85610; 85730; 86140; 87086; 87338; 96361; 96374; 96375; 99285-25; A9270-GY; C9113; J0696; J1170; J1885; J2405; J2765; J2930; J3480; J3490; J7050; J7120

== ENCOUNTER 2021-03-20 16:32 | Emergency (ER) | payer MEDICAID ==
[2021-03-20] MEDS ORDERED: Bacitracin Oint 1 GM U/D Packet TOP ONE (17:09)
--- NOTE | 2021-03-20 17:35 | EDM.PDOC ---
ED HPI GENERAL MEDICAL PROBLEM - General Chief Complaint: Laceration Stated Complaint: LEFT HAND 2 DIGIT LACERATION Time Seen by Provider: 03/20/21 16:45 Source of Information: Reports: Patient History Limitations: Reports: No Limitations - History of Present Illness INITIAL COMMENTS - FREE TEXT/NARRATIVE: Pt. presents to ER with complaints of laceration to L index finger. Pt. 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 Denies any injury other than what is isolated to L index finger. She states that her tetanus is up to date. Onset: Today Onset Date: 03/20/21 Location: Reports: Upper Extremity, Left Quality: Reports: Sharp Severity: Mild - Related Data Allergies Allergy/AdvReac Type Severity Reaction Status Date / Time latex Allergy Hives Verified 03/20/21 16:40 lithium [Belva] Allergy Anaphylactic Verified 03/20/21 16:40 Shock morphine Allergy Hypotension Verified 03/20/21 16:40 Sulfa (Sulfonamide Allergy Rash Verified 03/20/21 16:40 Antibiotics) Home Meds: Home Meds sulfaSALAzine 500 mg PO TID #30 tablet 12/28/18 [Rx] predniSONE [Prednisone] 10 mg PO BIDMEALS 03/20/21 [History] Past Medical History HEENT History: Reports: Impaired Vision, Other (See Below). Denies: Allergic Rhinitis, Cataract, Glaucoma, Hard of Hearing, Macular Degeneration, Retinal Detachment Other HEENT History: Patient wears glasses and soft contact lenses. Cardiovascular History: Reports: Heart Murmur, High Cholesterol, Other (See Below). Denies: Afib, Aneurysm, Arrhythmia, Blood Clots/VTE/DVT, CAD, Cardiomyopathy, Heart Failure, Hypertension, SC, PTCA, PVD, Syncope Other Cardiovascular History: Benign cardiac murmur in the past with history of borderline mitral valve insufficiency. Respiratory History: Reports: Asthma, Bronchitis, Recurrent, Intubation, Previous, Pneumonia, Recurrent. Denies: COPD, Intubation, Difficult, PE, Pneumothorax, Sleep Apnea, TB Gastrointestinal History: Reports: Cholelithiasis, Chronic Constipation, Gastritis, GERD, GI Bleed, Hepatitis, Irritable Bowel Syndrome, PUD, Other (See Below). Denies: Celiac Disease, Chronic Diarrhea, Colon Polyp, Fecal Incontinence, Inflammatory Bowel Disease Other Gastrointestinal History: History of hepatitis C previously treated by patient history. Chronic LFTs elevation. 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 Denies: Fibroids, , Spontaneous Other VARNISH FINISHER History: Surgical menopause. Dysmenorrhea likely secondary to endometriosis. Musculoskeletal History: Reports: Arthritis, Back Pain, Chronic, Fracture, Neck Pain, Chronic, Osteoarthritis, Other (See Below). Denies: Gout, RA, SLE Other Musculoskeletal History: Bilateral wrist fractures in childhood. Severe right ankle fracture 2016 requiring surgery as below. 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 Psychiatric History: Reports: Addiction, Anxiety, Bipolar, Depression, Psych Hospitalization(s), Other (See Below) Other Psychiatric History: Illicit drug use as below; multiple previous psychiatric hospitalizations for illicit drug use, etc. Endocrine/Metabolic History: Reports: Hypothyroidism, Obesity/BMI 30+, Other (See Below). Denies: Diabetes, Type I, Diabetes, Type II, Diabetes Mellitus, Type 3c, IDDM Other Endocrine/Metabolic History: Hypoalbuminemia Hematologic History: Reports: Anemia, Blood Transfusion(s), Iron Deficiency, Other (See Below) Other Hematologic History: Possible blood transfusions in the past secondary to gastric ulcer? Oncologic (Cancer) History: Reports: Cervix, Other (See Below) Other Oncologic History: Pre-cancerous cervical lesion requiring surgery as bel ow - Infectious Disease History Infectious Disease History: Reports: Hepatitis C - Past Surgical History Head Surgeries/Procedures: Reports: None HEENT Surgical History: Reports: Adenoidectomy, Oral Surgery, Tonsillectomy, Other (See Below). Denies: Cataract Surgery, Eye Surgery, Laser Surgery, LASIK, Myringotomy w Tube(s), Naso-Sinus Surgery Other HEENT Surgeries/Procedures: Previous with wisdom teeth extractions with subsequent Complete teeth extraction with complete upper and lower dentures. Tonsillectomy and adenoidectomy at age 15. Cardiovascular Surgical History: Reports: None. Denies: Varicose Respiratory Surgical History: Reports: None GI Surgical History: Reports: Appendectomy, Bariatric Procedure, Cholecystectomy, Hernia, Abdominal, Other (See Below). Denies: Colon, EGD, He rnia, Inguinal, Hernia Repair/Other Other GI Surgeries/Procedures: Gastric bypass in September 2007. Laparoscopic cholecystectomy age 14? Appendectomy. Volvulus versus intussusception repair of partial bowel resection in 2016 with subsequent ventral abdominal hernia repair and additional subsequent mesh removal. Female Surgical History: Reports: Cervical Cryotherapy, Hysterectomy, Other (See Below). Denies: Section, D&C, LEEP, Salpingo-Oophorectomy Other Female Surgeries/Procedures: Cryotherapy and subsequent partial hysterectomy at age 25 secondary to precancerous cervical lesion. Endometrial surgeries 3 secondary to endometriosis. Neurological Surgical History: Reports: Discectomy, Lumbar Spine, Spinal Fusion, Other (See Below) Other Neurological Surgeries/Procedures: Back surgeries 3 including L4-L5 spinal fusion and previous discectomy. Musculoskeletal Surgical History: Reports: ORIF, Other (See Below) Other Musculoskeletal Surgeries/Procedures:: ORIF of right ankle fracture in 2016 with bilateral corrective toe surgery of digits number 13 in 2018 - Past Imaging History Past Imaging History: Reports: Cardiac Echo (Negative echocardiogram on 12/10/13 with ejection fraction of 6065 percent.), Carotid US (Negative on 12/10/13.), MRI (MRI of the brain on 12/04/13. MRI of the C-spine and thoracic spine on 03/18/08.), Ultrasound (Thyroid ultrasound on 12/13/13) - History Comment History Comment: She is unable to give a complete history secondary to current illness, etc. Social & Family History - Family History Cardiac: Reports: Hypertension, Pacemaker, Other (See Below) Other Cardiac Family History: Father with history of hypertension and pacemaker. Psychiatric: Reports: Anxiety, Depression, Other (See Below) Other Psychiatric Family History: Mother with anxiety depression disorder - Sexual History Sexual History: Reports: Sexually Active - Living Situation & Occupation Living situation: Reports: (Second on 05/27/18), (2009), with Family () Occupation: Employed ([employer]) ED ROS GENERAL - Review of Systems Review Of Systems: Comprehensive ROS is negative, except as noted in HPI. ED EXAM, SKIN/RASH Exam: See Below Extremities: Other (1 cm laceration to tip of L index finger. No obvious gross francisco deformity. CMS intact.) ED SKIN PROCEDURES - Laceration/Wound Repair Left Digit - 2nd (Index) Appearance: Subcutaneous, Linear, Clean Distal NVT: Neuro & Vascular Intact, No Tendon Injury Anesthetic Type: Local Local Anesthesia - Lidocaine (Xylocaine): 1% Plain Local Anesthetic Volume: 2cc Skin Prep: Chlorhexidine (Hibiciens), Providone-Iodine (Betadine) Exploration/Debridement/Repair: Wound Explored Closed with: Sutures Lac/Wound length In cm: 1 Suture Size: 4-0 # of Sutures: 2 Course - Vital Signs Last Recorded V/S: Last Vital Signs Temp Pulse 75 03/20/21 16:34 Resp 20 03/20/21 16:34 BP 120/64 03/20/21 16:34 Pulse Ox 98 03/20/21 16:34 - Orders/Labs/Meds Meds: Medications Discontinued Medications Generic Name Dose Route Start Last Admin Trade Name Freq PRN Reason Stop Dose Admin Bacitracin 1 dose 03/20/21 17:09 Bacitracin Oint 1 Gm U/D Packet TOP 03/20/21 17:10 ONETIME ONE Lidocaine HCl 5 ml 03/20/21 16:53 03/20/21 16:57 Lidocaine 1% 5 Ml Sdv INJECT 03/20/21 16:54 5 ml ONETIME ONE Administration Departure - Departure Time of Disposition: 17:00 Disposition: Home, Self-Care 01 Clinical Impression: Finger laceration - Discharge Information Instructions: Laceration Care, Adult Forms: ED Department Discharge Additional Instructions: Sutures out in clinic in 12 days Keep covered if you anticipate the area getting dirty. Otherwise, keep open to the air as much as possible. Keep dry for 48 hours Return if you notice any redness, swelling, or discharge from the area Ibuprofen as needed for discomfort Sepsis Event Note (ED) - Evaluation Sepsis Screening Result: No Definite Risk - Focused Exam Vital Signs: Vital Signs Pulse Resp BP Pulse Ox 03/20/21 16:34 75 20 120/64 98 - Problem List Review Problem List Initiated/Reviewed/Updated: Yes
== END 2021-03-20 17:16 | disposition home or self-care (01) ==
LOC: LL.ED 16:32
DX: S61.211A Laceration without foreign body of left index finger without damage to nail, initial encounter (principal); Z88.2 Allergy status to sulfonamides; Z88.6 Allergy status to analgesic agent; Z91.040 Latex allergy status; Z91.048 Other nonmedicinal substance allergy status; W26.8XXA Contact with other sharp object(s), not elsewhere classified, initial encounter
CPT/HCPCS: 12001; 99282-25; 99283

== ENCOUNTER 2023-05-03 11:31 | Emergency (ER) | payer MEDICAID ==
[2023-05-03] MEDS: Ketorolac 30 MG/ML SDV IM ONE (12:10)
== END 2023-05-03 12:15 | disposition home or self-care (01) ==
LOC: LL.ED 11:31
DX: S63.501A Unspecified sprain of right wrist, initial encounter (principal); J45.909 Unspecified asthma, uncomplicated; E66.9 Obesity, unspecified; Z91.040 Latex allergy status; Z88.8 Allergy status to other drugs, medicaments and biological substances; Z88.5 Allergy status to narcotic agent; Z88.2 Allergy status to sulfonamides; Z79.899 Other long term (current) drug therapy; W01.0XXA Fall on same level from slipping, tripping and stumbling without subsequent striking against object, initial encounter; Y92.480 Sidewalk as the place of occurrence of the external cause
CPT/HCPCS: 73110-RT; 73130-RT; 96372; 99283; J1885